=== PATIENT | male | born 1970 | race Caucasian/White ===

== ENCOUNTER → 2018-03-20 | Outpatient (CLI) | payer OTHER ==
[2018-02-23 07:43] VITALS: BMI 38.9
[~2018-03-20] MED LIST: ATE50 PO; ATEN-1 PO; CEP500 PO; CHLO100T25 PO; CHLO200T8 PO; HCTZ25 PO; HYDR-2966 PO; HYDR-4228 PO; IOPAMIDOL 76% 75 ML INFUS BTL 75 ML ONE; KET10 PO; LEVO-85 PO; LIDO700A25 TP; LISI-362 PO; LISI1TAB61 PO; LISI20TA29 PO; LOR05 PO; LOR1 PO; LOTE5DRO8 ASDIRECTED; METF-411 PO; MULT-859 PO; MVM PO; NEBI10TA4 PO; NEBI20TA4 PO; OMEP-153 PO; OMEP40CA48 PO; OXYC-763 PO; OXYC-865 PO; OXYGEN INH; PARO-243 PO; PRO20 PO; QUET100T29 PO; QUET200T29 PO; QUET50TA21 PO; RANI-366 PO; SALSP; SODI45SP NS; TOBOD OS; TRAZ-133 PO; ZOL5 PO; ZOLP-350 PO; [UNRECOGNIZED DRUG - CODE] PO
--- NOTE | 2018-03-20 12:41 | RADIOLOGY IMAGING REPORT ---
FACILITY: [facility] - [place] PATIENT NAME: Bernard Martinez : 1970 MR: [id number] V: [id number] EXAM DATE: ORDERING PHYSICIAN: GREGORY MILLER TECHNOLOGIST: Location: [facility] - [place] Patient: Bernard Martinez : 1970 Visit/Account:[id number] Date of Sevice: 03/20/2018 CHEST W W/O CONTRAST History: Nodule left lower lobe ADDITIONAL CLINICAL HISTORY: None TECHNIQUE: Contiguous axial images were performed through the chest to the level of the adrenal gla nds with and without IV contrast. Coronal and sagittal reformatting was also performed. Dose Loweri ng Technique One of the following dose optimization techniques was utilized in the performance of this exam: Autom ated exposure control; adjustment of the mA and/or kV according to the patient's size; or use of an i terative reconstruction technique. Specific details can be referenced in the facility's radiology C T exam operational policy. Contrast: 75 mL Isovue-370 COMPARISON STUDIES: Single view chest February 22, [address] abdomen pelvis October 09, 2016. And C T of abdomen pelvis April 04, 2009 Lungs / Pleura: There is a 2 mm calcified nodule posterior aspect of the right upper lobe best seen on image 147 There is a 3 mm noncalcified nodule abutting the minor fissure on the right best seen on image 166 o f series 6. There are two separate 2 mm noncalcified nodules also abutting the minor fissure on the right best s een on images 170 171. There is a 4 mm noncalcified nodule abutting the minor fissure on the right best seen on image 180. There is a 2 mm noncalcified nodule abutting the major fissure on the left best seen on image 214 There is coarse linear scarring in the inferior lingula Mediastinum/nodes: No pathologically enlarged mediastinal or hilar lymph nodes are identified Heart and vessels: Small amount of air is seen in the anterior portion of the pulmonary trunk right atrium likely related to contrast injection. Musculoskeletal / Body wall: No aggressive appearing bone lesions are seen Upper abdomen: There is severe hepatic steatosis IMPRESSION: There is a 2 mm calcified nodule posterior aspect right upper lobe as described above There are small noncalcified nodules in both lungs measuring up to 4 mm. These all appear to be abut ting pulmonary fissures. For multiple nodules measuring less than 6 mm, in a low risk patient (minima l or absent smoking history, no history of malignancy), no routine followup is recommended. In a high risk patient (smoking or malignancy history), optional 12 month followup can be obtained. A left lower lobe pulmonary nodule is not appreciated. There is also no evidence of a left lower lob e pulmonary nodule on the prior CTs of the abdomen and pelvis available at this time. If there is an outside study with concern for a left lower lobe pulmonary nodule comparison is recommended Report Dictated By: Brittany Alexis MD at 03/20/2018 12:22 PM Report E-Signed By: Brittany Alexis MD at 03/20/2018 12:37 PM ROSALIO:IRMA
== END ==
LOC: CT 10:01
PROVIDERS: ATTEND Nurse Practitioner Family
DX: R91.8 Other nonspecific abnormal finding of lung field (principal)
CPT/HCPCS: 71270; Q9967

== ENCOUNTER 2018-10-13 14:27 | Outpatient (RCR) | payer OTHER ==
[2018-02-23 07:43] VITALS: BMI 38.9
[~2018-10-13 14:27] MED LIST changes: -IOPAMIDOL 76% 75 ML INFUS BTL 75 ML ONE; -METF-411 PO; +METF-450 PO
[2018-10-14] MEDS ORDERED: IOPAMIDOL 76% 50 ML INFUS BTL 100 ML ONE (09:04)
--- NOTE | 2018-10-14 13:18 | RADIOLOGY IMAGING REPORT ---
FACILITY: [facility] - [place] PATIENT NAME: Bernard Martinez : 1970 MR: [id number] V: [id number] EXAM DATE: ORDERING PHYSICIAN: GREGORY MILLER TECHNOLOGIST: Location: [facility] Patient: Bernard Martinez : 1970 Visit/Account:[id number] Date of Sevice: 10/14/2018 CHEST W W/O CONTRAST History: Pulmonary nodules, smoker ADDITIONAL CLINICAL HISTORY: None TECHNIQUE: Contiguous axial images were performed through the chest to the level of the adrenal gla nds with and without IV contrast. Coronal and sagittal reformatting was also performed.Dose Lowerin g Technique One of the following dose optimization techniques was utilized in the performance of this exam: Autom ated exposure control; adjustment of the mA and/or kV according to the patient's size; or use of an i terative reconstruction technique. Specific details can be referenced in the facility's radiology C T exam operational policy. Contrast: 75 mL Isovue-370 COMPARISON STUDIES: March 20, 2018. Lungs / Pleura: 2 mm calcified nodule posterior aspect right upper lobe appears unchanged and is be st seen on image 168 of series 4. The three noncalcified pulmonary nodules abutting the minor fissure on the right measuring up to 3 mm have remained stable. The 4 mm noncalcified nodule abutting the minor fissure on the right also rem ains unchanged best seen on image 200. The 2 mm noncalcified nodule abutting the major fissure on the left appears unchanged best seen on im age 231 No new nodules identified Linear scarring in the lingula remain stable Mediastinum/nodes: negative. Heart and vessels: Coronary artery calcifications Musculoskeletal / Body wall: No aggressive appearing bone lesions Upper abdomen: Severe hepatic steatosis IMPRESSION: Small calcified and noncalcified pulmonary nodules measuring up to 4 mm have remained stable Severe hepatic steatosis Report Dictated By: Brittany Alexis MD at 10/14/2018 12:57 PM Report E-Signed By: Brittany Alexis MD at 10/14/2018 1:14 PM WSN:[email or web address]
== END 2018-10-14 18:00 | disposition home or self-care (01) ==
LOC: CT 14:27 → EDSTATUS 10-14 14:26 → CT 10-14 18:00
PROVIDERS: ATTEND Nurse Practitioner Family
DX: R91.1 Solitary pulmonary nodule (principal); Z87.891 Personal history of nicotine dependence; K74.60 Unspecified cirrhosis of liver
CPT/HCPCS: 36415; 71270; 82565; Q9967

== ENCOUNTER 2019-01-12 07:37 | Emergency (ER) | payer OTHER ==
[2018-02-23 07:43] VITALS: Wt 135.6 kg
[~2019-01-12 07:37] MED LIST changes: +QUET25TA30 PO
--- NOTE | 2019-01-12 07:39 | ER Report ---
History and Physical Time Seen By MD: 07:41 HPI/ROS CHIEF COMPLAINT: Near syncope HISTORY OF PRESENT ILLNESS: Patient is a 48-year-old male with past medical history significant for hypertension, obstructive sleep apnea who is presenting to the emergency department with complaint of falling asleep frequently. He states the most recent episode was this morning while in the shower he "off" but immediately woke up. He denies any headache. He actually denies passing out and feels he is falling asleep. He states that he's had multiple episodes similar over the weekend. He denies any head injury,. He denies chest pain or shortness of breath. He does admit to a mild cough for the last few days. He denies any abdominal pain he denies nausea vomiting or diarrhea. He does admit to occasional alcohol use, states that he quit smoking a year ago. Denies any other illicit drugs. She does have a history of difficult to control hypertension is on by systolic, hydrochlorothiazide and lisinopril. States that they're continuing to change his medications to better get control of his blood pressure. REVIEW OF SYSTEMS: Constitutional: No fever, no chills. Eyes: No discharge. No double vision ENT: No sore throat. Cardiovascular: No chest pain, no palpitations. Respiratory: Occasional cough, no shortness of breath history of obstructive sleep apnea. Gastrointestinal: No abdominal pain, no vomiting. Genitourinary: No hematuria. Musculoskeletal: No back pain. Skin: No rashes. Neurological: No headache. Allergies: Coded Allergies: avocado (Verified Allergy, Intermediate, BURNING OF THE THROAT, ITCHING EARS, 01/12/19) latex (Verified Allergy, Unknown, UNKNOWN, 01/12/19) PER HOSPITAL PROTOCOL INITIATE LATEX ALLERGY IF ALLERGIC TO AVOCADOS.Also pt says that he does not have a problem with latex. Uncoded Allergies: cats (Allergy, Mild, 07/01/10) Home Meds Reported Medications Quetiapine Fumarate (SEROQUEL) 25 Mg Tablet, 25 MG PO PRN 10/26/18 Quetiapine Fumarate (SEROQUEL) 100 Mg Tablet, 50 MG PO HS 02/23/18 Nebivolol Hcl (BYSTOLIC) 10 Mg Tab, 10 MG PO QDAY, TAB 02/23/18 Lisinopril (LISINOPRIL) 10 Mg Tablet, 30 MG PO QDAY, TAB 02/22/18 Metformin Hcl (METFORMIN HCL) 500 Mg Tablet, 1 TAB PO BID, TAB 08/18/17 Hydrochlorothiazide (HYDROCHLOROTHIAZIDE) 25 Mg Tablet, 1 TAB PO QDAY, TAB 08/18/17 Omeprazole (OMEPRAZOLE) 40 Mg Capsule.dr, 40 MG PO QAM, CAP 10/17/16 Discontinued Scripts Hydroxyzine Hcl (HYDROXYZINE HCL) 50 Mg Tablet, 50 MG PO Q6H PRN for anxiety, #10 Prov:KENISHA LUNA MD 02/23/18 Past Medical/Surgical History Patient has a past medical history of 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 Patient has a surgical history of inguinal and umbilical hernia repair. Patient has a family medical history of cancer, CAD, diabetes, depression. Hx Smoking: Yes (1 in am and 1 in pm for 26 yrs about) Smoking Status: Current: Every Day Smoker Exposure to Second Hand Smoke?: Yes Hx Substance Use Disorder: Yes (quit 2007) Hx Alcohol Use: Yes Constitutional Vital Sign - Last 24 Hours 01/12/19 01/12/19 01/12/19 01/12/19 07:43 07:52 08:22 08:22 Temp 98.2 Pulse 107 88 Resp 20 16 B/P (MAP) 181/117 Pulse Ox 90 93 O2 Delivery Room Air Nasal Cannula O2 Flow Rate 2.0 1.5 01/12/19 01/12/19 08:27 08:27 Pulse 76 Resp 16 Pulse Ox 95 O2 Delivery Nasal Cannula O2 Flow Rate 1.0 Physical Exam General/Constitutional: Patient is awake, alert, nontoxic and in no acute respiratory distress. Head: Normocephalic and atraumatic. Eyes: Conjunctival clear, Pupils are equal and reactive to light. Extraocular muscles are intact and symmetrical. There is mild fatigable horizontal nystagmus noted on exam Sclera are clear and anicteric. Ears:External canals are clear. Tympanic membranes are clear with normal landmarks and light reflex. Nares: No rhinorrhea or bleeding. Turbinates are pink and moist. Oropharyngeal: Mucous membranes are moist. There is no pharyngeal erythema or exudate. There are no palatal petechiae. Uvula is midline and symmetrical. Neck: Supple, no adenopathy. Cardiovascular: Heart is tightly tachycardic with regular rate and rhythm without audible murmurs, rubs or gallops. Pulmonary: Lungs are noted for wheezing to right lung wynn left lung wynn sound clear Abdomen: Deferred, nontender no guarding or peritoneal signs Extremities: No gross deformities, No peripheral cyanosis. Able to move all 4 extremities. Patient with 2+ pitting edema bilateral lower extremities. Neuro: Alert and oriented X3, Cranial nerves 2 thru 12 are intact and symmetrical. Skin: No rashes, skin is warm dry and well perfused. Medical Decision Making Data Points Result Diagram: 01/12/19 0747 01/12/19 0747 Laboratory Hematology Test 01/12/19 07:47 01/12/19 07:57 Red Blood Count 5.18 M/uL (4.00-5.60) Mean Corpuscular Volume 90.3 fL (80.0-96.0) Mean Corpuscular Hemoglobin 28.9 pg (26.0-33.0) Mean Corpuscular Hemoglobin Concent 32.0 g/dL (32.0-36.0) Red Cell Distribution Width 16.5 % (11.5-14.5) Mean Platelet Volume 9.1 fL (7.2-11.1) Neutrophils (%) (Auto) 66.2 % (39.4-72.5) Lymphocytes (%) (Auto) 18.0 % (17.6-49.6) Monocytes (%) (Auto) 11.8 % (4.1-12.4) Eosinophils (%) (Auto) 2.7 % (0.4-6.7) Basophils (%) (Auto) 1.3 % (0.3-1.4) Nucleated RBC Relative Count (auto) 0.0 /100WBC Neutrophils # (Auto) 3.8 K/uL (2.0-7.4) Lymphocytes # (Auto) 1.0 K/uL (1.3-3.6) Monocytes # (Auto) 0.7 K/uL (0.3-1.0) Eosinophils # (Auto) 0.2 K/uL (0.0-0.5) Basophils # (Auto) 0.1 K/uL (0.0-0.1) Nucleated RBC Absolute Count (auto) 0.00 K/uL Prothrombin Time 14.7 seconds (12.0-14.4) Prothromb Time International Ratio 1.14 Activated Partial Thromboplast Time 33 seconds (23-35) Sodium Level 139 mmol/L (137-145) Potassium Level 3.6 mmol/L (3.5-5.0) Chloride Level 102 mmol/L (98-107) Carbon Dioxide Level 29 mmol/L (22-30) Blood Urea Nitrogen 7 mg/dl (9-21) Creatinine 0.60 mg/dl (0.66-1.25) Glomerular Filtration Rate Calc > 60.0 Random Glucose 164 mg/dl (75-110) Calcium Level 8.5 mg/dl (8.4-10.2) Magnesium Level 1.7 mg/dl (1.7-2.2) Total Bilirubin 0.7 mg/dl (0.2-1.3) Aspartate Amino Transf (AST/SGOT) 63 U/L (0-35) Alanine Aminotransferase (ALT/SGPT) 54 U/L (0-56) Alkaline Phosphatase 79 U/L (0-126) Troponin I 0.031 ng/ml B-Type Natriuretic Peptide 236 pg/ml (0-100) Total Protein 7.3 g/dl (6.3-8.2) Albumin 4.0 g/dl (3.5-5.0) Serum Alcohol 59 mg/dl Influenza Virus Type A (PCR) Negative (NEGATIVE) Influenza Virus Type B (PCR) Negative (NEGATIVE) Chemistry Test 01/12/19 07:47 01/12/19 07:57 White Blood Count 5.8 k/uL (4.5-11.0) Red Blood Count 5.18 M/uL (4.00-5.60) Hemoglobin 15.0 g/dL (14.0-18.0) Hematocrit 46.8 % (42.0-52.0) Mean Corpuscular Volume 90.3 fL (80.0-96.0) Mean Corpuscular Hemoglobin 28.9 pg (26.0-33.0) Mean Corpuscular Hemoglobin Concent 32.0 g/dL (32.0-36.0) Red Cell Distribution Width 16.5 % (11.5-14.5) Platelet Count 180 K/uL (150-450) Mean Platelet Volume 9.1 fL (7.2-11.1) Neutrophils (%) (Auto) 66.2 % (39.4-72.5) Lymphocytes (%) (Auto) 18.0 % (17.6-49.6) Monocytes (%) (Auto) 11.8 % (4.1-12.4) Eosinophils (%) (Auto) 2.7 % (0.4-6.7) Basophils (%) (Auto) 1.3 % (0.3-1.4) Nucleated RBC Relative Count (auto) 0.0 /100WBC Neutrophils # (Auto) 3.8 K/uL (2.0-7.4) Lymphocytes # (Auto) 1.0 K/uL (1.3-3.6) Monocytes # (Auto) 0.7 K/uL (0.3-1.0) Eosinophils # (Auto) 0.2 K/uL (0.0-0.5) Basophils # (Auto) 0.1 K/uL (0.0-0.1) Nucleated RBC Absolute Count (auto) 0.00 K/uL Prothrombin Time 14.7 seconds (12.0-14.4) Prothromb Time International Ratio 1.14 Activated Partial Thromboplast Time 33 seconds (23-35) Glomerular Filtration Rate Calc > 60.0 Calcium Level 8.5 mg/dl (8.4-10.2) Magnesium Level 1.7 mg/dl (1.7-2.2) Total Bilirubin 0.7 mg/dl (0.2-1.3) Aspartate Amino Transf (AST/SGOT) 63 U/L (0-35) Alanine Aminotransferase (ALT/SGPT) 54 U/L (0-56) Alkaline Phosphatase 79 U/L (0-126) Troponin I 0.031 ng/ml B-Type Natriuretic Peptide 236 pg/ml (0-100) Total Protein 7.3 g/dl (6.3-8.2) Albumin 4.0 g/dl (3.5-5.0) Serum Alcohol 59 mg/dl Influenza Virus Type A (PCR) Negative (NEGATIVE) Influenza Virus Type B (PCR) Negative (NEGATIVE) Coagulation Test 01/12/19 07:47 Prothrombin Time 14.7 seconds Prothromb Time International Ratio 1.14 Activated Partial Thromboplast Time 33 seconds Toxicology Test 01/12/19 07:47 Serum Alcohol 59 mg/dl EKG/Imaging EKG Interpretation EKG shows sinus rhythm with ventricular rate of [address] segment or T-wave abnormalities. QTC is 439 ms. Monitor Interpretation: Normal Sinus Rhythm Imaging FACILITY: [facility] PATIENT NAME: Bernard Martinez : 1970 MR: [id number] V: [id number] EXAM DATE: [id number] ORDERING PHYSICIAN: JAGDISH COBB TECHNOLOGIST: Location: [facility] - [place] Patient: Bernard Martinez : 1970 Visit/Account:[id number] Date of Sevice: 01/12/2019 EXAMINATION: Head CT without intravenous contrast HISTORY: Overwhelming sense of sleepiness, syncope, TECHNIQUE: Contiguous axial images were obtained from the skull base to the vertex without intravenous contrast. Sagittal and coronal reformatted images are also submitted. Dose Lowering Technique One of the following dose optimization techniques was utilized in the performance of this exam: Automated exposure control; adjustment of the mA and/or kV according to the patient's size; or use of an iterative reconstruction technique. Specific details can be referenced in the facility's radiology CT exam operational policy. COMPARISON: February 22, 2018 FINDINGS: Brain volume: Normal. Ventricles: Normal. Acute ischemic changes: None. Hemorrhage: None. Masses / edema: None. Singh-white: Negative. White matter: There is a small focal area of decreased attenuation in the posterior left parietal white matter that appear stable when compared the prior study Vessels: Negative. Extra-axial: Negative. Calvarium / scalp: Negative. Skull base / visualized face: Negative. Visualized sinuses / orbits: There is complete opacification of the right maxillary sinus with soft tissue density material extending medially into the right-sided the nasal vault appears more advanced when compared to the prior study. Very mild mucosal thickening lateral aspect left maxillary sinus appears less prominent IMPRESSION: Complete opacification right maxillary sinus with soft tissue density material extending medially into the right side of the nasal bone. This appears more advanced when compared to the prior study Report Dictated By: Brittany Alexis MD at 01/12/2019 8:56 AM Report E-Signed By: Brittany Alexis MD at 01/12/2019 9:05 AM WSN:IRMA ED Course/Re-evaluation Clinical Indication for ER IV: IV Access ED Course 01/12/2019 8:01:14 am patient with symptoms of narcolepsy. Plan at this time will be medical workup including cardiac workup, brain atretic peptide, EKG we will also perform CT scan of the head we'll perform urine drug screen and alcohol level. 01/12/2019 9:26:09 am patient with left maxillary sinusitis we'll treat with antibiotics and decongestants. Remaining blood work essentially unremarkable. Slight elevation in brain natruretic peptide. Troponin was negative. Alcohol level was 56 mg/dL and patient did admit to drinking last night. I counseled patient on avoiding alcohol for the near future as this is a sedative and certainly is not helping with his narcoleptic episodes. 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 Decision to Disposition Date: Jan 12, 2019 Decision to Disposition Time: 09:27 Depart Departure Latest Vital Signs Vital Signs Date Time Temp Pulse Resp B/P (MAP) Pulse Ox O2 Delivery O2 Flow Rate FiO2 01/12/19 08:27 76 16 01/12/19 08:27 95 Nasal Cannula 1.0 01/12/19 07:43 98.2 181/117 Impression: Primary Impression: Narcolepsy Additional Impression: Sinusitis Condition: Improved Disposition: HOME OR SELF-CARE Referrals: GREGORY MILLER (PCP) make a follow up appointmenyt in the next 2 weeks to follow up regarding your narcoleptic episodes New Scripts Pseudoephedrine Hcl (SUDAFED 12 HOUR) 120 Mg Tablet.er 120 MG PO Q12H, #14 TAB 0 Refills Prov: JAGDISH COBB MD 01/12/19 Amoxicillin/Pot Clav 875-125 Mg Tab (AUGMENTIN 875-125 TABLET) 1 Each Tablet 1 TAB PO Q12H, #20 TAB 0 Refills Prov: JAGDISH COBB MD 01/12/19 Departure Forms: ER Transition Record, Medications Reconciliation, Off Work/School Form, School or Work Release?: Work Number of days to be released: 3 Patient Portal Information Patient Instructions: Narcolepsy (GEN), Sinusitis (ED) Additional Instructions: No driving for the next 72 hours. Make a follow-up appointment with your primary Provider the next 2 weeks Problem Qualifiers Primary Impression: Narcolepsy Narcolepsy type: primary with cataplexy Qualified Codes: G47.411 - Narcolepsy with cataplexy Additional Impression: Sinusitis Sinusitis location: maxillary Chronicity: acute Recurrence: not specified as recurrent Qualified Codes: J01.00 - Acute maxillary sinusitis, unspecified JAGDISH COBB MD Jan 12, 2019 07:39
--- NOTE | 2019-01-12 08:04 | EKG ---
FACILITY: [facility] PATIENT NAME: LORA RODRIGEZ : [id number] MR: [id number] V: [id number] EXAM DATE: ORDERING PHYSICIAN: JAGDISH COBB TECHNOLOGIST: KATIE Kidd Reason : SYNCOPE Blood Pressure : / mmHG Vent. Rate : 096 BPM Atrial Rate : 096 BPM P-R Int : 192 ms QRS Dur : 084 ms QT Int : 348 ms P-R-T Axes : 051 092 019 degrees QTc Int : 439 ms Normal sinus rhythm T wave abnormality consistent with inf/sep ischemia vs normal variant When compared with ECG of 22-FEB-2018 23:18, T wave inversion now evident in Anterior leads Confirmed by KENISHA LUNA ([id number]) on 01/12/2019 10:02:45 PM Referred By: REZA Confirmed By:KENISHA LUNA
[2019-01-12 08:17] LABS: PLATELET COUNT, AUTOMATED 180 K/uL (150-450)
[2019-01-12] MEDS ORDERED: ALBUTEROL/IPRATROPIUM 3 ML NEB NEB ONE (08:20)
[2019-01-12] MEDS ORDERED: LABETALOL HCL 20 MG/4 ML SYR IVP ONE (08:20)
[2019-01-12] MEDS ORDERED: LABETALOL HCL 100 MG/20ML VIAL IVP ONE (08:25)
[2019-01-12 08:28] LABS: INR 1.14
--- NOTE | 2019-01-12 09:08 | RADIOLOGY IMAGING REPORT ---
FACILITY: [facility] - [place] PATIENT NAME: Bernard Martinez : 1970 MR: [id number] V: [id number] EXAM DATE: ORDERING PHYSICIAN: JAGDISH COBB TECHNOLOGIST: Location: [facility] - [place] Patient: Bernard Martinez : 1970 Visit/Account:[id number] Date of Sevice: 01/12/2019 EXAMINATION: Head CT without intravenous contrast HISTORY: Overwhelming sense of sleepiness, syncope, TECHNIQUE: Contiguous axial images were obtained from the skull base to the vertex without intraven ous contrast. Sagittal and coronal reformatted images are also submitted. Dose Lowering Technique One of the following dose optimization techniques was utilized in the performance of this exam: Autom ated exposure control; adjustment of the mA and/or kV according to the patient's size; or use of an i terative reconstruction technique. Specific details can be referenced in the facility's radiology C T exam operational policy. COMPARISON: February 22, 2018 FINDINGS: Brain volume: Normal. Ventricles: Normal. Acute ischemic changes: None. Hemorrhage: None. Masses / edema: None. Singh-white: Negative. White matter: There is a small focal area of decreased attenuation in the posterior left parietal wh ite matter that appear stable when compared the prior study Vessels: Negative. Extra-axial: Negative. Calvarium / scalp: Negative. Skull base / visualized face: Negative. Visualized sinuses / orbits: There is complete opacification of the right maxillary sinus with soft tissue density material extending medially into the right-sided the nasal vault appears more advanced when compared to the prior study. Very mild mucosal thickening lateral aspect left maxillary sinus appears less prominent IMPRESSION: Complete opacification right maxillary sinus with soft tissue density material extending medially int o the right side of the nasal bone. This appears more advanced when compared to the prior study Report Dictated By: Brittany Alexis MD at 01/12/2019 8:56 AM Report E-Signed By: Brittany Alexis MD at 01/12/2019 9:05 AM WSN:[email or web address]
--- NOTE | 2019-01-12 09:12 | RADIOLOGY IMAGING REPORT ---
FACILITY: [facility] PATIENT NAME: Bernard Martinez : 1970 MR: [id number] V: [id number] EXAM DATE: ORDERING PHYSICIAN: JAGDISH COBB TECHNOLOGIST: Location: [facility] [place] Patient: Bernard Martinez : 1970 Visit/Account:[id number] Date of Sevice: 01/12/2019 Exam type: CHEST PA LAT History: Chest Pain Comparison: February 22, 2014. Findings: The lungs are free of acute effusions, infiltrates or edema. The cardiac silhouette is normal in siz e. The trachea is in midline.. The visualized bones are unremarkable for age IMPRESSION: 1. No acute cardiopulmonary process is seen Report Dictated By: Brittany Alexis MD at 01/12/2019 9:05 AM Report E-Signed By: Brittany Alexis MD at 01/12/2019 9:07 AM WSN:[email or web address]
[2019-01-12] MEDS ORDERED: AMOX-559 PO (09:29)
[2019-01-12] MEDS ORDERED: PSEU120T69 PO (09:29)
[2019-01-12 09:30] VITALS: BP 171/118
== END 2019-01-12 10:00 | disposition home or self-care (01) ==
LOC: ER 07:46
DX: G47.411 Narcolepsy with cataplexy (principal); J01.00 Acute maxillary sinusitis, unspecified; Z87.891 Personal history of nicotine dependence
CPT/HCPCS: 70450; 71046; 80305; 80320; 81001; 83735; 83880; 84443; 84484; 85025; 85610; 85730; 87502; 93005; 94640; 96374; 99284; J7620; 82040; 82247; 82310; 82374; 82435; 82565; 82947; 84075; 84132; 84155; 84295; 84450; 84460; 84520

== ENCOUNTER → 2019-02-02 | Outpatient (CLI) | payer OTHER ==
[2018-02-23 07:43] VITALS: BMI 38.9
[~2019-02-02] MED LIST changes: +AMOX-559 PO; +PSEU120T69 PO
== END ==
LOC: LAB 13:54
PROVIDERS: ATTEND Nurse Practitioner Family
DX: R74.8 Abnormal levels of other serum enzymes (principal); E78.5 Hyperlipidemia, unspecified; G47.33 Obstructive sleep apnea (adult) (pediatric); I10 Essential (primary) hypertension; R73.03 Prediabetes
CPT/HCPCS: 36415; 82465; 83036; 83718; 83880; 84478

== ENCOUNTER → 2019-02-19 | Outpatient (CLI) | payer OTHER ==
[2018-02-23 07:43] VITALS: BMI 38.9
== END ==
LOC: LAB 14:49
PROVIDERS: ATTEND Nurse Practitioner Family
DX: Z51.81 Encounter for therapeutic drug level monitoring (principal); I10 Essential (primary) hypertension
CPT/HCPCS: 36415; 82040; 82247; 82310; 82374; 82435; 82565; 82947; 84075; 84132; 84155; 84295; 84450; 84460; 84520

== ENCOUNTER 2019-04-04 12:44 | Emergency (ER) | payer SELFPAY ==
[2018-02-23 07:43] VITALS: Wt 127.0 kg
[~2019-04-04 12:44] MED LIST changes: -RANI-366 PO; +RANI-54 PO
--- NOTE | 2019-04-04 13:09 | ER Report ---
History and Physical Time Seen By MD: 13:09 Hx. of Stated Complaint: Panic attacks HPI/ROS CHIEF COMPLAINT: Panic attacks HISTORY OF PRESENT ILLNESS: 48 year old male presents to ED with reports of panic attacks since Friday or Friday afternoon. These occur about 4-5 times a day with symptoms of headache, shortness of breath, tremor, and tingling in his hands and feet. Denies chest pain, heaviness over his chest, dizziness, changes in vision, nausea. As well, reports difficulty in saying the words that he wants to say. Reports his recently unexpectedly and he is having to plan her . Her family is in town and staying with him. Denies SI. Jordon also reports he stopped drinking the same time that his symptoms started. He used to drink 12 shots and 3 beers a day. Also reports inability to sleep at night due to racing thoughts. States he has been able to talk through the of his with her family. Would like to talk with S about staying up there for a day or two. REVIEW OF SYSTEMS: Constitutional: Denies fevers HEENT: Reports headaches with the panic attacks Respiratory: No cough. Reports SOB with the panic attacks. Cardiovascular: No chest pain, no palpitations. Gastrointestinal: No vomiting, no abdominal pain. Neuro: Reprots tremors and tingling in his hands and feet with the panic attacks. Reports some expressive aphasia. Musculoskeletal: No back pain. Psych: No SI. Anxiety and depression over losing his . Allergies: Coded Allergies: avocado (Verified Allergy, Intermediate, BURNING OF THE THROAT, ITCHING EARS, 04/04/19) latex (Verified Allergy, Unknown, UNKNOWN, 04/04/19) PER HOSPITAL PROTOCOL INITIATE LATEX ALLERGY IF ALLERGIC TO AVOCADOS.Also pt says that he does not have a problem with latex. Uncoded Allergies: cats (Allergy, Mild, 07/01/10) Home Meds Reported Medications Furosemide (FUROSEMIDE) 40 Mg Tablet, 40 MG PO DAILY 04/04/19 [Potassium] 20 MEQ No Conflict Check, PO DAILY 04/04/19 Quetiapine Fumarate (SEROQUEL) 25 Mg Tablet, 25 MG PO PRN 10/26/18 Quetiapine Fumarate (SEROQUEL) 100 Mg Tablet, 100 MG PO HS 02/23/18 Nebivolol Hcl (BYSTOLIC) 10 Mg Tab, 10 MG PO QDAY, TAB 02/23/18 Lisinopril (LISINOPRIL) 10 Mg Tablet, 30 MG PO QDAY, TAB 02/22/18 Metformin Hcl (METFORMIN HCL) 500 Mg Tablet, 1 TAB PO BID, TAB 08/18/17 Omeprazole (OMEPRAZOLE) 40 Mg Capsule.dr, 40 MG PO QAM, CAP 10/17/16 Discontinued Reported Medications Hydrochlorothiazide (HYDROCHLOROTHIAZIDE) 25 Mg Tablet, 1 TAB PO QDAY, TAB 08/18/17 Discontinued Scripts Pseudoephedrine Hcl (SUDAFED 12 HOUR) 120 Mg Tablet.er, 120 MG PO Q12H, #14 TAB 0 Refills Prov:JAGDISH COBB MD 01/12/19 Amoxicillin/Pot Clav 875-125 Mg Tab (AUGMENTIN 875-125 TABLET) 1 Each Tablet, 1 TAB PO Q12H, #20 TAB 0 Refills Prov:JAGDISH COBB MD 01/12/19 Past Medical/Surgical History Past medical hx significant for seizures r/t ETOH withdrawal in 2009, angina, REJI, HTN, asthma, elevated liver enzymes, GERDpre-diabetes, substance abuse in 2007, anxiety. Surgical hx significant for inguinal and umbilical hernia repair 10/22/16 Reviewed Nurses Notes: Yes Hx Smoking: Yes (1 in am and 1 in pm for 26 yrs about) Smoking Status: Current: Every Day Smoker Exposure to Second Hand Smoke?: Yes Hx Substance Use Disorder: Yes (quit 2007) Hx Alcohol Use: Yes Constitutional Vital Sign - Last 24 Hours 04/04/19 04/04/19 04/04/19 04/04/19 12:56 12:59 13:00 13:04 Temp 99.3 Pulse 110 Resp 20 B/P (MAP) 174/125 (141) 180/123 180/123 (142) Pulse Ox 92 90 O2 Delivery Room Air 04/04/19 04/04/19 04/04/19 04/04/19 13:09 13:14 13:19 13:24 Pulse 109 110 108 97 Pulse Ox 90 90 90 89 04/04/19 04/04/19 04/04/19 04/04/19 13:29 13:30 13:34 13:39 Pulse 105 107 B/P (MAP) 168/117 (134) Pulse Ox 92 93 93 6/204/04/19 04/04/19 04/04/19 13:44 13:49 13:54 13:59 Pulse 94 90 105 94 Pulse Ox 92 93 96 93 04/04/19 04/04/19 04/04/19 04/04/19 14:00 14:04 14:09 14:14 Pulse 94 96 95 B/P (MAP) 181/112 (135) Pulse Ox 94 94 94 04/04/19 04/04/19 04/04/19 04/04/19 14:24 14:29 14:30 14:34 Pulse 79 96 88 B/P (MAP) 157/100 (119) Pulse Ox 93 95 95 04/04/19 04/04/19 04/04/19 04/04/19 14:39 14:44 15:00 15:14 Pulse 86 89 89 B/P (MAP) 161/112 (128) Pulse Ox 95 97 94 Physical Exam General Appearance: The patient is alert, has no immediate need for airway p rotection and no current signs of toxicity. Eyes: Pupils equal and round no injection. Respiratory: Chest is non tender, lungs are clear to auscultation. Cardiac: regular rate and rhythm Gastrointestinal: Abdomen is soft and non tender, no masses, bowel sounds normal. Musculoskeletal: Neck: Neck is supple and non tender. Extremities have full range of motion and are non tender. Skin: No rashes or lesions. DIFFERENTIAL DIAGNOSIS: After history and physical exam differential diagnosis was considered for anxiety, depression, stroke, substance abuse, alcohol withdrawal, panic attack, insomnia. Medical Decision Making Data Points Result Diagram: 04/04/19 1323 04/04/19 1323 Laboratory Hematology Test 04/04/19 13:07 04/04/19 13:23 Urine Color Mel Urine Clarity Clear Urine pH 5.0 pH (4.8-9.5) Urine Specific [place] 1.023 Urine Protein 30 mg/dL (NEGATIVE) Urine Glucose (UA) Negative mg/dL (NEGATIVE) Urine Ketones Negative mg/dL (NEGATIVE) Urine Blood Negative (NEGATIVE) Urine Nitrite Negative (NEGATIVE) Urine Bilirubin Negative (NEGATIVE) Urine Urobilinogen 4.0 mg/dL (0.2-1.9) Urine Leukocyte Esterase Negative (NEGATIVE) Urine RBC 2 /HPF (0-2/HPF) Urine WBC 2 /HPF (0-5/HPF) Urine Squamous Epithelial Cells None /LPF (</=FEW) Urine Bacteria Negative /HPF (NONE-FEW) Urine Mucus Few /HPF (NONE-FEW) Urine Opiates Screen Negative Urine Barbiturates Screen Negative Ur Tricyclic Antidepressants Screen Negative Urine Phencyclidine Screen Negative Urine Amphetamines Screen Negative Urine Benzodiazepines Screen Negative Urine Cocaine Screen Negative Urine Cannabinoids Screen Negative Red Blood Count 5.75 M/uL (4.00-5.60) Mean Corpuscular Volume 92.9 fL (80.0-96.0) Mean Corpuscular Hemoglobin 30.9 pg (26.0-33.0) Mean Corpuscular Hemoglobin Concent 33.3 g/dL (32.0-36.0) Red Cell Distribution Width 19.0 % (11.5-14.5) Mean Platelet Volume 9.0 fL (7.2-11.1) Neutrophils (%) (Auto) 78.7 % (39.4-72.5) Lymphocytes (%) (Auto) 9.5 % (17.6-49.6) Monocytes (%) (Auto) 9.1 % (4.1-12.4) Eosinophils (%) (Auto) 1.6 % (0.4-6.7) Basophils (%) (Auto) 1.1 % (0.3-1.4) Nucleated RBC Relative Count (auto) 0.1 /100WBC Neutrophils # (Auto) 6.8 K/uL (2.0-7.4) Lymphocytes # (Auto) 0.8 K/uL (1.3-3.6) Monocytes # (Auto) 0.8 K/uL (0.3-1.0) Eosinophils # (Auto) 0.1 K/uL (0.0-0.5) Basophils # (Auto) 0.1 K/uL (0.0-0.1) Nucleated RBC Absolute Count (auto) 0.01 K/uL Sodium Level 141 mmol/L (137-145) Potassium Level 4.1 mmol/L (3.5-5.0) Chloride Level 103 mmol/L (98-107) Carbon Dioxide Level 22 mmol/L (22-30) Blood Urea Nitrogen 12 mg/dl (9-21) Creatinine 0.70 mg/dl (0.66-1.25) Glomerular Filtration Rate Calc > 60.0 Random Glucose 117 mg/dl (75-110) Calcium Level 9.7 mg/dl (8.4-10.2) Magnesium Level 2.1 mg/dl (1.7-2.2) Total Bilirubin 1.1 mg/dl (0.2-1.3) Aspartate Amino Transf (AST/SGOT) 269 U/L (0-35) Alanine Aminotransferase (ALT/SGPT) 155 U/L (0-56) Alkaline Phosphatase 81 U/L (0-126) Total Protein 8.3 g/dl (6.3-8.2) Albumin 4.6 g/dl (3.5-5.0) Salicylates Level < 10 mg/L Salicylate Last Dose Date unk Acetaminophen Level < 10 ug/ml Serum Alcohol < 10 mg/dl Chemistry Test 04/04/19 13:07 04/04/19 13:23 Urine Color Mel Urine Clarity Clear Urine pH 5.0 pH (4.8-9.5) Urine Specific [place] 1.023 Urine Protein 30 mg/dL (NEGATIVE) Urine Glucose (UA) Negative mg/dL (NEGATIVE) Urine Ketones Negative mg/dL (NEGATIVE) Urine Blood Negative (NEGATIVE) Urine Nitrite Negative (NEGATIVE) Urine Bilirubin Negative (NEGATIVE) Urine Urobilinogen 4.0 mg/dL (0.2-1.9) Urine Leukocyte Esterase Negative (NEGATIVE) Urine RBC 2 /HPF (0-2/HPF) Urine WBC 2 /HPF (0-5/HPF) Urine Squamous Epithelial Cells None /LPF (</=FEW) Urine Bacteria Negative /HPF (NONE-FEW) Urine Mucus Few /HPF (NONE-FEW) Urine Opiates Screen Negative Urine Barbiturates Screen Negative Ur Tricyclic Antidepressants Screen Negative Urine Phencyclidine Screen Negative Urine Amphetamines Screen Negative Urine Benzodiazepines Screen Negative Urine Cocaine Screen Negative Urine Cannabinoids Screen Negative White Blood Count 8.6 k/uL (4.5-11.0) Red Blood Count 5.75 M/uL (4.00-5.60) Hemoglobin 17.8 g/dL (14.0-18.0) Hematocrit 53.4 % (42.0-52.0) Mean Corpuscular Volume 92.9 fL (80.0-96.0) Mean Corpuscular Hemoglobin 30.9 pg (26.0-33.0) Mean Corpuscular Hemoglobin Concent 33.3 g/dL (32.0-36.0) Red Cell Distribution Width 19.0 % (11.5-14.5) Platelet Count 164 K/uL (150-450) Mean Platelet Volume 9.0 fL (7.2-11.1) Neutrophils (%) (Auto) 78.7 % (39.4-72.5) Lymphocytes (%) (Auto) 9.5 % (17.6-49.6) Monocytes (%) (Auto) 9.1 % (4.1-12.4) Eosinophils (%) (Auto) 1.6 % (0.4-6.7) Basophils (%) (Auto) 1.1 % (0.3-1.4) Nucleated RBC Relative Count (auto) 0.1 /100WBC Neutrophils # (Auto) 6.8 K/uL (2.0-7.4) Lymphocytes # (Auto) 0.8 K/uL (1.3-3.6) Monocytes # (Auto) 0.8 K/uL (0.3-1.0) Eosinophils # (Auto) 0.1 K/uL (0.0-0.5) Basophils # (Auto) 0.1 K/uL (0.0-0.1) Nucleated RBC Absolute Count (auto) 0.01 K/uL Glomerular Filtration Rate Calc > 60.0 Calcium Level 9.7 mg/dl (8.4-10.2) Magnesium Level 2.1 mg/dl (1.7-2.2) Total Bilirubin 1.1 mg/dl (0.2-1.3) Aspartate Amino Transf (AST/SGOT) 269 U/L (0-35) Alanine Aminotransferase (ALT/SGPT) 155 U/L (0-56) Alkaline Phosphatase 81 U/L (0-126) Total Protein 8.3 g/dl (6.3-8.2) Albumin 4.6 g/dl (3.5-5.0) Salicylates Level < 10 mg/L Salicylate Last Dose Date unk Acetaminophen Level < 10 ug/ml Serum Alcohol < 10 mg/dl Toxicology Test 04/04/19 13:07 04/04/19 13:23 Urine Opiates Screen Negative Urine Barbiturates Screen Negative Ur Tricyclic Antidepressants Screen Negative Urine Phencyclidine Screen Negative Urine Amphetamines Screen Negative Urine Benzodiazepines Screen Negative Urine Cocaine Screen Negative Urine Cannabinoids Screen Negative Salicylates Level < 10 mg/L Salicylate Last Dose Date unk Acetaminophen Level < 10 ug/ml Serum Alcohol < 10 mg/dl Urinalysis Test 04/04/19 13:07 Urine Color Mel Urine Clarity Clear Urine pH 5.0 pH (4.8-9.5) Urine Specific [place] 1.023 Urine Protein 30 mg/dL (NEGATIVE) Urine Glucose (UA) Negative mg/dL (NEGATIVE) Urine Ketones Negative mg/dL (NEGATIVE) Urine Blood Negative (NEGATIVE) Urine Nitrite Negative (NEGATIVE) Urine Bilirubin Negative (NEGATIVE) Urine Urobilinogen 4.0 mg/dL (0.2-1.9) Urine Leukocyte Esterase Negative (NEGATIVE) Urine RBC 2 /HPF (0-2/HPF) Urine WBC 2 /HPF (0-5/HPF) Urine Squamous Epithelial Cells None /LPF (</=FEW) Urine Bacteria Negative /HPF (NONE-FEW) Urine Mucus Few /HPF (NONE-FEW) ED Course/Re-evaluation ED Course Upon arrival to the ED, patient admitted to an exam room, hx and physical obtained, differentials considered. Presents to ED with reports of panic attacks since Friday or Friday afternoon. These occur about 4-5 times a day with symptoms of headache, shortness of breath, tremor, and tingling in his hands and feet. Denies chest pain, heaviness over his chest, dizziness, changes in vision, nausea. As well, reports some expressive aphasia. Reports his recently unexpectedly and he is having to plan her . Her family is in town and staying with him. Denies SI. Ray also reports he stopped drinking the same time that his symptoms started. He used to drink 12 shots and 3 beers a day. Also reports inability to sleep at night due to racing thoughts. He has a hx of alcohol detox in 2009. Has hx of anxiety that he takes medication for. Hx of ETOH and substance abuse. Smokes 1/2 ppd. He consulted with S and is agreeable to being admitted. BP was elevated on admission at 160s/110. Patient reports he has not been taking his BP meds for several days. Heart rate and rhythm regular. Lungs clear to auscultation. CBC, UA, urine drug screen, thyroid, drug panel, magnesium drawn. IV started, 1000 ML NS infused. AST 269, A LT 155, UA clear, toxicology screen negative, Alcohol level <10, RBC 5.75, WBC 8.6, Neutrophils 78.7, Mag 2.1. Since patient is agreeable to being admitted to [facility], psychiatrist, Suki Dominguez, consulted with and agrees to admit to [facility]. Patient agrees with plan of care. Decision to Disposition Date: Apr 04, 2019 Decision to Disposition Time: 14:30 Depart Departure Latest Vital Signs Vital Signs Date Time Temp Pulse Resp B/P (MAP) Pulse Ox O2 Delivery O2 Flow Rate FiO2 04/04/19 15:14 89 94 04/04/19 15:00 161/112 (128) 04/04/19 13:00 99.3 20 Room Air Impression: Primary Impression: Depression Additional Impression: INSOMNIA, UNSPECIFIED Condition: Condition Unchanged Disposition: XFER TO [facility] Referrals: GREGORY MILLER (PCP) MICROPHONE OPERATOR/PA consult with MD: Verbally Problem Qualifiers Primary Impression: Depression Depression Type: unspecified Qualified Codes: F32.9 - Major depressive disorder, single episode, unspecified GITA JUNIOR Apr 04, 2019 13:09
[2019-04-04 13:50] LABS: PLATELET COUNT, AUTOMATED 164 K/uL (150-450)
[2019-04-04] MEDS ORDERED: NS(*) 0.9% 1000 ML BAG 1,000 ML IV ONE (14:10)
[2019-04-04 15:00] VITALS: BP 161/112
[2019-04-04] MEDS ORDERED: FURO-47 PO (15:07)
[2019-04-04] MEDS ORDERED: POTASSIUM PO (15:07)
[2019-04-05] MEDS ORDERED: POTA-28 PO (19:02)
== END 2019-04-04 15:40 | disposition other institution (70) ==
LOC: ER 13:20
DX: F32.9 Major depressive disorder, single episode, unspecified (principal); F43.0 Acute stress reaction; G47.00 Insomnia, unspecified; Z79.84 Long term (current) use of oral hypoglycemic drugs; Z79.899 Other long term (current) drug therapy; F17.200 Nicotine dependence, unspecified, uncomplicated
CPT/HCPCS: 80305; 80320; 80329; 81001; 83735; 84443; 85025; 96360; 96361; 99284; J7030; 82040; 82247; 82310; 82374; 82435; 82565; 82947; 84075; 84132; 84155; 84295; 84450; 84460; 84520

== ENCOUNTER 2019-04-04 14:55 | Inpatient (IN) | payer SELFPAY ==
[2018-02-23 07:43] VITALS: Ht 180.3 cm; Wt 129.3 kg
[~2019-04-04] VITALS: Ht 180.3 cm; Wt 129.3 kg
[2019-04-04] MEDS ORDERED: POTASSIUM PO (15:07)
[2019-04-04] MEDS ORDERED: FURO-47 PO (15:07)
[2019-04-04 15:35] VITALS: BP 178/121
[2019-04-04] MEDS ORDERED: DIAZEPAM 10 MG TAB PO PRN (15:55)
[2019-04-04] MEDS: DIAZEPAM 10 MG TAB PO PRN ×5 (16:15→23:40)
[2019-04-04] MEDS ORDERED: NICOTINE CARTRIDGE 1 EA PO PRN (16:40)
[2019-04-04] MEDS ORDERED: NICOTINE INH SYSTEM 10 MG/INH INH PRN (16:40)
[2019-04-04] MEDS ORDERED: MAG HYD/AL HYD/SIMETH 30ML UDC PO PRN (16:40)
[2019-04-04] MEDS ORDERED: QUEtiapine FUM 25 MG TAB PO PRN (16:45)
[2019-04-04] MEDS: metFORMIN HCL 500 MG TAB PO SCH (17:19)
[2019-04-04] MEDS ORDERED: LOPERAMIDE HCL 2 MG CAP PO PRN (17:45)
[2019-04-04] MEDS ORDERED: LOPERAMIDE HCL 2 MG CAP PO ONE (17:45)
[2019-04-04 19:56] VITALS: BP 144/95
[2019-04-04] MEDS ORDERED: QUEtiapine FUM 100 MG TAB PO SCH (21:00)
[2019-04-04 21:33] VITALS: BP 148/95
[2019-04-04 22:23] VITALS: BP 148/95
[2019-04-05] MEDS: DIAZEPAM 10 MG TAB PO PRN (01:15)
[2019-04-05 06:03] VITALS: BP 169/105
[2019-04-05 06:20] LABS: PLATELET COUNT, AUTOMATED 133 K/uL (150-450)
[2019-04-05] MEDS: NEBIVOLOL HCL 5 MG TAB PO SCH (08:20)
[2019-04-05] MEDS: POTASSIUM CHL 20 MEQ TABCR PO SCH (08:20)
[2019-04-05] MEDS: metFORMIN HCL 500 MG TAB PO SCH ×2 (08:20→17:02)
[2019-04-05] MEDS: FOLIC ACID 1 MG TAB PO SCH (08:20)
[2019-04-05] MEDS: FUROSEMIDE 40 MG TAB PO SCH (08:20)
[2019-04-05] MEDS: MULTIVITAMINS TAB PO SCH (08:21)
[2019-04-05] MEDS: LISINOPRIL PO SCH (08:21)
[2019-04-05] MEDS: THIAMINE HCL 100 MG TAB PO SCH (08:21)
[2019-04-05] MEDS: PANTOPRAZOLE SOD 40 MG TABEC PO SCH (08:21)
[2019-04-05 09:55] VITALS: BP 158/98
--- NOTE | 2019-04-05 12:08 | HISTORY AND PHYSICAL ---
DATE OF ADMISSION: April 04, 2019 DATE OF INTERVIEW: April 05, 2019 at 9 a.m. ATTENDING PHYSICIAN Lupis Barroso MD CHIEF COMPLAINT "I was trying to detox on my own. I was making arrangements. 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 The patient has a history of drinking and has most recently been drinking three beers per day along with about 12 ounces of hard liquor. A week ago, he came home and found his in their bed. He called EMS and she was brought to the ER but attempts at resuscitation were not successful. Since then he has had a great deal of support from family members and has been planning her . He decided to stop drinking completely cold turkey five days prior to admission. He says that he was starting to feel very ill, very anxious and was having panic attacks. He also says his voices came back, telling him "It's all your fault." He came to the emergency room yesterday and was admitted with alcohol withdrawal. He denies any current suicidal ideation, although he does say yesterday he had some fleeting thoughts of suicide but had no plan and no intention. He has been distraught and upset, of course, since his but has been functioning pretty well with the help of family in terms of making plans for her . He has been eating. He says his sleep has been difficult and he thinks he has only been getting three or four hours of sleep per night lately. He has been wearing his CPAP and he reports that generally when he does not wear his CPAP consistently he does experience the onset of auditory hallucinations. PAST PSYCHIATRIC HISTORY He has had three prior residential admissions for rehab including one at the age of 23 in [place] and another one about 11 years ago at [facility] in [place]. He has several admissions here to [facility] for detox and also for psychotic symptoms. He attends [facility] and was last there with his therapist, Bartolome, approximately six months ago. He formerly attended AA in the past fairly regularly but had fallen off; he attended his first AA meeting in a long time on Friday, when he decided to quit alcohol cold turkey. FAMILY HISTORY His mother had depression, alcoholism in two brothers and in several uncles. There are no completed suicides in the family. PAST MEDICAL/SURGICAL HISTORY * Obstructive sleep apnea. * Hypertension. * Seasonal allergies. * History of DTs with alcohol withdrawal in the past. * He was recently diagnosed with an elevated BNP and he was started on Lasix about two months ago. * He is prediabetic and takes Metformin. * He had hernia surgery one year ago. CURRENT MEDICATIONS * Quetiapine 100 mg at bedtime. * Lasix 40 mg daily. * Potassium chloride 20 mEq daily. * Bystolic 10 mg daily. * Lisinopril 30 mg daily. * Protonix 40 mg daily. * Metformin 500 mg b.i.d. ALLERGIES Avocado, cats and latex. SOCIAL HISTORY Born and raised in [place]. His parents were at the time of his . He got along well with family members and he describes a good childhood which was free of emotional, physical or sexual abuse. He has a very supportive family. He lives in [place] and was to his for about three years. As above, she unexpectedly a week ago and he is awaiting the results of her autopsy to find out her case of . He has three brothers and two sisters. He is a high school graduate. He has been three times in total. He has two children and a stepson, who are supportive. SUBSTANCE ABUSE HISTORY In the distant past, he says he "tried almost everything". He never had any history of intravenous drug abuse. He has used no other substances other than alcohol since 2007. He is an alcoholic who has most recently been drinking 12 ounces of hard liquor plus three beers per day. ABUSE HISTORY Negative. LEGAL HISTORY He did have one DUI in the past. PHYSICAL EXAMINATION Please see the ER physician's report. VITAL SIGNS: Temperature 98.7, pulse 87, blood pressure 144/95, pulse oximetry 91 on room air. LABORATORY STUDIES Platelet count is low at 133. The remainder of the CBC is WNL. Creatinine is low at 0.6. AST high at 166. ALT high at 134. The remainder of the chemistry panel is WNL. Urinalysis is WNL. Tox screen is negative. Serum alcohol is nil. MENTAL STATUS EXAM The patient is well-groomed with long hair in a ponytail, wearing glasses and dressed in hospital scrubs. He is cooperative. He makes moderate to poor eye contact with generally a downcast gaze. He was not tearful. Speech was normal in rate, tone and volume. Mood and affect were depressed. Thought process is logical and goal-direct. Thought content is positive for auditory hallucinations of a derogatory nature, saying over and over "it's your fault." He denies suicidal ideation, homicidal ideation, visual hallucinations and delusions. He is alert and fully oriented to person, place, time and situation. Memory is intact for immediate, recent and remote recall. Intelligence is average based on interview. Insight and judgment are good. 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 * Alcohol use disorder, severe. * Alcohol withdrawal. * Bereavement. PLAN The patient is admitted to [facility]. He is being maintained on suicide precautions. We have increased his Seroquel to 150 mg q h.s. to treat his psychotic symptoms. He is being monitored on the AL protocol and receiving Valium for detox. He is using his CPAP at night. He will participate in individual and group therapies with a focus on sobriety strategies as well as a focus on his recent bereavement. His estimated length of stay will be three to five days. [facility]
[2019-04-05 14:25] VITALS: BP 142/98
[2019-04-05] MEDS ORDERED: POTA-28 PO (19:02)
[2019-04-05 20:02] VITALS: BP 145/90
[2019-04-05] MEDS ORDERED: QUEtiapine FUM 100 MG TAB PO SCH (21:00)
[2019-04-06 04:29] VITALS: BP 117/72
[2019-04-06 07:55] VITALS: BP 138/94
[2019-04-06] MEDS: NEBIVOLOL HCL 5 MG TAB PO SCH (08:24)
[2019-04-06] MEDS: metFORMIN HCL 500 MG TAB PO SCH (08:24)
[2019-04-06] MEDS: PANTOPRAZOLE SOD 40 MG TABEC PO SCH (08:25)
[2019-04-06] MEDS: THIAMINE HCL 100 MG TAB PO SCH (08:25)
[2019-04-06] MEDS: LISINOPRIL PO SCH (08:25)
[2019-04-06] MEDS: FUROSEMIDE 40 MG TAB PO SCH (08:25)
[2019-04-06] MEDS: FOLIC ACID 1 MG TAB PO SCH (08:25)
[2019-04-06] MEDS: MULTIVITAMINS TAB PO SCH (08:25)
[2019-04-06] MEDS: POTASSIUM CHL 20 MEQ TABCR PO SCH (08:25)
[2019-04-06] MEDS ORDERED: NIC10R INH (10:14)
--- NOTE | 2019-04-06 11:34 | BHS Discharge Summary ---
[facility] Discharge Summary Rgqv-ir-Sorf Encounter Date: Apr 06, 2019 Jlwy-yq-Hrvk Encounter Time: 09:00 Reason-Hosp/Final Diag (DSM-V): (1) Alcohol use disorder, severe, dependence Hospital Course & Plan: DATE OF ADMISSION: April 04, 2019 DATE OF INTERVIEW: April 05, 2019 at 9 a.m. ATTENDING PHYSICIAN Basilia Barroso MD CHIEF COMPLAINT "I was trying to detox on my own. I was making arrangements. 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 The patient has a history of drinking and has most recently been drinking three beers per day along with about 12 ounces of hard liquor. A week ago, he came home and found his in their bed. He called EMS and she was brought to the ER but attempts at resuscitation were not successful. Since then he has had a great deal of support from family members and has been planning her . He decided to stop drinking completely cold turkey five days prior to admission. He says that he was starting to feel very ill, very anxious and was having panic attacks. He also says his voices came back, telling him "It's all your fault." He came to the emergency room yesterday and was admitted with alcohol withdrawal. He denies any current suicidal ideation, although he does say yesterday he had some fleeting thoughts of suicide but had no plan and no intention. He has been distraught and upset, of course, since his but has been functioning pretty well with the help of family in terms of making plans for her . He has been eating. He says his sleep has been difficult and he thinks he has only been getting three or four hours of sleep per night lately. He has been wearing his CPAP and he reports that generally when he does not wear his CPAP consistently he does experience the onset of auditory hallucinations. PAST PSYCHIATRIC HISTORY He has had three prior residential admissions for rehab including one at the age of 23 in [place] and another one about 11 years ago at [facility] in [place]. He has several admissions here to [facility] for detox and also for psychotic symptoms. He attends [facility] and was last there with his therapist, Bartolome, approximately six months ago. He formerly attended AA in the past fairly regularly but had fallen off; he attended his first AA meeting in a long time on Friday, when he decided to quit alcohol cold turkey. FAMILY HISTORY His mother had depression, alcoholism in two brothers and in several uncles. There are no completed suicides in the family. PAST MEDICAL/SURGICAL HISTORY * Obstructive sleep apnea. * Hypertension. * Seasonal allergies. * History of DTs with alcohol withdrawal in the past. * He was recently diagnosed with an elevated BNP and he was started on Lasix about two months ago. * He is prediabetic and takes Metformin. * He had hernia surgery one year ago. CURRENT MEDICATIONS * Quetiapine 100 mg at bedtime. * Lasix 40 mg daily. * Potassium chloride 20 mEq daily. * Bystolic 10 mg daily. * Lisinopril 30 mg daily. * Protonix 40 mg daily. * Metformin 500 mg b.i.d. HOSPITAL COURSE Pt was admitted to [facility] and maintained on suicide precautions. He was detoxed using valium via the [facility] protocol. Detox was uncomplicated. He attended group and individual therapy, focusing on bereavement, also on strategies for sob riety. We increased his seroquel to 150 mg q HS for his auditory hallucinations, and this was well tolerated. By morning of discharge he was feeling much better, was free of SI, and was planning to follow up at [facility], and with Huma Knight for medication management. He was also planning to return to meetings. (2) Bereavement (3) Psychotic disorder with hallucinations due to known physiological condition Optional Permanent Comment: obstructive sleep apnea Last Edited By: Basilia Barroso on Apr 06, 2019 11:28 Physical Exam Latest Vital Signs Vital Signs 04/05/19 04/06/19 06:03 07:55 Temp 98.1 Pulse 78 Resp 16 B/P (MAP) 138/94 (109) Pulse Ox 93 O2 Delivery Room Air O2 Flow Rate 2.0 Mental Status Exam General Appearance: Casual, Well Groomed, Good Eye Contact, Cooperative, Polite, Good Interaction Speech: Clear, Spontaneous, Normal Rate, Normal Rhythm, Normal Volume, Normal Tone Mood: Euthymic Affect: Full and Appropriate, Tearful (teared up once when we were talking about the of his .) Thought Process: Organized, Logical, Goal Directed Thought Content: No Suicidal Ideation, No Homicidal Ideation, No Delusions; Auditory Halllucinations (still present td much less intensity/frequency); No Visual Hallucinations, No Thought Broadcasting, No Ideas of Reference, No Obsessions, No Compulsions, No Other Sensorium: Clear Cognition: Alert & Oriented-Person, Alert & Oriented-Place, Alert & Oriented- Time, Flscu-Ieqiiepc-Jfpvlglrx Memory: Immediate, Recent, Remote Intelligence: Average Insight Judgment: Fair Departure Result Diagram: 04/05/1961404/05/19614 Condition: Improved Discharge to: Home Discharge Instructions Home Meds Reported Medications Nicotine (NICOTROL) 10 Mg/Inh Ctr, 10 MG INH Q1-2H 04/06/19 Potassium Chloride (POTASSIUM CHLORIDE) 10 Meq Tablet.er, 10 MEQ PO QDAY TAKE 2 TABS DAILY 04/05/19 Furosemide (FUROSEMIDE) 40 Mg Tablet, 40 MG PO DAILY 04/04/19 Quetiapine Fumarate (SEROQUEL) 25 Mg Tablet, 25 MG PO PRN 10/26/18 Quetiapine Fumarate (SEROQUEL) 100 Mg Tablet, 150 MG PO HS 02/23/18 Nebivolol Hcl (BYSTOLIC) 10 Mg Tab, 10 MG PO QDAY, TAB 02/23/18 Lisinopril (LISINOPRIL) 10 Mg Tablet, 30 MG PO QDAY, TAB 02/22/18 Metformin Hcl (METFORMIN HCL) 500 Mg Tablet, 1 TAB PO BID, TAB 08/18/17 Omeprazole (OMEPRAZOLE) 40 Mg Capsule.dr, 40 MG PO QAM, CAP 10/17/16 Discontinued Reported Medications [Potassium] 20 MEQ No Conflict Check, PO DAILY 04/04/19 Hydrochlorothiazide (HYDROCHLOROTHIAZIDE) 25 Mg Tablet, 1 TAB PO QDAY, TAB 08/18/17 Discontinued Scripts Pseudoephedrine Hcl (SUDAFED 12 HOUR) 120 Mg Tablet.er, 120 MG PO Q12H, #14 TAB 0 Refills Prov:JAGDISH COBB MD 01/12/19 Amoxicillin/Pot Clav 875-125 Mg Tab (AUGMENTIN 875-125 TABLET) 1 Each Tablet, 1 TAB PO Q12H, #20 TAB 0 Refills Prov:JAGDISH COBB MD 01/12/19 Multpiple Antipsychotics Used: No Diet: Regular Activity: As Tolerated Special Instructions: Abstain from alcohol. Take medications as prescribed. Follow up with outpatient provider for medication management. Follow up with outpatient therapy. Join AA. Obtain an AA Sponsor & utilize them. Call Crisis Line or return to the ER should BASILIA BARROSO MD Apr 06, 2019 11:34
== END 2019-04-06 10:45 | disposition home or self-care (01) | DRG 897 ==
LOC: BHS 14:55
PROVIDERS: ADMIT Nurse Practitioner Psychiatric/Mental Health; ATTEND Nurse Practitioner Psychiatric/Mental Health
PROC: 5A09357 Assistance with Respiratory Ventilation, Less than 24 Consecutive Hours, Continuous Positive Airway Pressure (ICD-10-PCS; principal; 2019-04-04)
DX: F10.230 Alcohol dependence with withdrawal, uncomplicated (principal); F06.8 Other specified mental disorders due to known physiological condition; G47.33 Obstructive sleep apnea (adult) (pediatric); I10 Essential (primary) hypertension; R73.03 Prediabetes; F17.210 Nicotine dependence, cigarettes, uncomplicated; Z63.4 Disappearance and death of family member; Z99.81 Dependence on supplemental oxygen; Z79.84 Long term (current) use of oral hypoglycemic drugs; Z91.040 Latex allergy status; Z81.1 Family history of alcohol abuse and dependence; Z81.8 Family history of other mental and behavioral disorders
CPT/HCPCS: 36415; 81001; 82040; 82247; 82274; 82310; 82374; 82435; 82565; 82947; 84075; 84132; 84155; 84295; 84450; 84460; 84520; 85025

== ENCOUNTER 2019-04-25 14:26 | Emergency (ER) | payer SELFPAY ==
[2018-02-23 07:43] VITALS: Wt 129.5 kg
[~2019-04-25 14:26] MED LIST changes: +FURO-47 PO; +NIC10R INH; +POTA-28 PO; +POTASSIUM PO
[2019-04-25 14:32] VITALS: BP 161/109
--- NOTE | 2019-04-25 14:33 | ER Report ---
History and Physical Time Seen By MD: 14:31 HPI/ROS History of mental health disorder. Recently admitted to in early April. His young dies suddenly March 27, 2019. He says he thinks he killed her, b/c he has AIDs and gave it to her. He has never been diagnosed with AIDs. He takes multiple meds, but the only psych med is Seroquel 150mg qhs. He did not take it last night. He has previously been on Thorazine. He was a daily drinker and is an alcoholic, but stopped drinking 7 days ago. He says he has not slept in days, and his auditory hallucinations are getting loud and intrusive. Denies SI/HI. No illegal drugs Remainder of the 14 system rev: Yes Allergies: Coded Allergies: avocado (Verified Allergy, Intermediate, BURNING OF THE THROAT, ITCHING EARS, 04/04/19) latex (Verified Allergy, Unknown, UNKNOWN, 04/04/19) PER HOSPITAL PROTOCOL INITIATE LATEX ALLERGY IF ALLERGIC TO AVOCADOS.Also pt says that he does not have a problem with latex. Uncoded Allergies: cats (Allergy, Mild, 07/01/10) Home Meds Reported Medications Nicotine (NICOTROL) 10 Mg/Inh Ctr, 10 MG INH Q1-2H 04/06/19 Potassium Chloride (POTASSIUM CHLORIDE) 10 Meq Tablet.er, 10 MEQ PO QDAY TAKE 2 TABS DAILY 04/05/19 Furosemide (FUROSEMIDE) 40 Mg Tablet, 40 MG PO DAILY 04/04/19 Quetiapine Fumarate (SEROQUEL) 25 Mg Tablet, 25 MG PO PRN 10/26/18 Quetiapine Fumarate (SEROQUEL) 100 Mg Tablet, 150 MG PO HS 02/23/18 Nebivolol Hcl (BYSTOLIC) 10 Mg Tab, 10 MG PO QDAY, TAB 02/23/18 Lisinopril (LISINOPRIL) 10 Mg Tablet, 40 MG PO QDAY, TAB 02/22/18 Metformin Hcl (METFORMIN HCL) 500 Mg Tablet, 1 TAB PO BID, TAB 08/18/17 Omeprazole (OMEPRAZOLE) 40 Mg Capsule.dr, 40 MG PO QAM, CAP 10/17/16 Reviewed Nurses Notes: Yes Old Medical Records Reviewed: Yes Hx Smoking: Yes Smoking Status: Current: Every Day Smoker Exposure to Second Hand Smoke?: No Hx Substance Use Disorder: Yes (quit 2007) Hx Alcohol Use: Yes Constitutional Vital Sign - Last 24 Hours 04/25/19 14:32 Temp 97.5 Pulse 112 Resp 20 B/P (MAP) 161/109 Pulse Ox 94 O2 Delivery Room Air Physical Exam General Appearance: The patient is alert, has no immediate need for airway protection and no current signs of toxicity. [ ] Eyes: Pupils equal and round no injection. Respiratory: Chest is non tender, lungs are clear to auscultation. Cardiac: regular rate and rhythm Gastrointestinal: Abdomen is soft and non tender, no masses, bowel sounds normal. Neck: Neck is supple and non tender. Extremities have full range of motion and are non tender. Skin: No rashes or lesions. DIFFERENTIAL DIAGNOSIS: After history and physical exam differential diagnosis was considered for depression including functional and major depression, situational depression, medication side effect, drugs and alcohol abuse. Medical Decision Making Data Points Result Diagram: 04/25/19 1550 04/25/19 1550 Laboratory Hematology Test 04/25/19 14:26 04/25/19 15:50 Urine Color Straw Urine Clarity Clear Urine pH 6.0 pH (4.8-9.5) Urine Specific Crawford 1.002 Urine Protein Negative mg/dL (NEGATIVE) Urine Glucose (UA) Negative mg/dL (NEGATIVE) Urine Ketones Trace mg/dL (NEGATIVE) Urine Blood Negative (NEGATIVE) Urine Nitrite Negative (NEGATIVE) Urine Bilirubin Negative (NEGATIVE) Urine Urobilinogen Negative mg/dL (0.2-1.9) Urine Leukocyte Esterase Negative (NEGATIVE) Urine RBC <1 /HPF (0-2/HPF) Urine WBC 1 /HPF (0-5/HPF) Urine Squamous Epithelial Cells None /LPF (</=FEW) Urine Bacteria Negative /HPF (NONE-FEW) Urine Mucus None /HPF (NONE-FEW) Urine Opiates Screen Negative Urine Barbiturates Screen Negative Ur Tricyclic Antidepressants Screen Negative Urine Phencyclidine Screen Negative Urine Amphetamines Screen Negative Urine Benzodiazepines Screen Negative Urine Cocaine Screen Negative Urine Cannabinoids Screen Negative Red Blood Count 5.89 M/uL (4.00-5.60) Mean Corpuscular Volume 94.2 fL (80.0-96.0) Mean Corpuscular Hemoglobin 31.4 pg (26.0-33.0) Mean Corpuscular Hemoglobin Concent 33.4 g/dL (32.0-36.0) Red Cell Distribution Width 16.1 % (11.5-14.5) Mean Platelet Volume 9.0 fL (7.2-11.1) Neutrophils (%) (Auto) 78.7 % (39.4-72.5) Lymphocytes (%) (Auto) 10.5 % (17.6-49.6) Monocytes (%) (Auto) 8.4 % (4.1-12.4) Eosinophils (%) (Auto) 2.0 % (0.4-6.7) Basophils (%) (Auto) 0.4 % (0.3-1.4) Nucleated RBC Relative Count (auto) 0.0 /100WBC Neutrophils # (Auto) 9.1 K/uL (2.0-7.4) Lymphocytes # (Auto) 1.2 K/uL (1.3-3.6) Monocytes # (Auto) 1.0 K/uL (0.3-1.0) Eosinophils # (Auto) 0.2 K/uL (0.0-0.5) Basophils # (Auto) 0.1 K/uL (0.0-0.1) Nucleated RBC Absolute Count (auto) 0.00 K/uL Sodium Level 136 mmol/L (137-145) Potassium Level 3.5 mmol/L (3.5-5.0) Chloride Level 97 mmol/L (98-107) Carbon Dioxide Level 21 mmol/L (22-30) Blood Urea Nitrogen 8 mg/dl (9-21) Creatinine 0.60 mg/dl (0.66-1.25) Glomerular Filtration Rate Calc > 60.0 Random Glucose 109 mg/dl (75-110) Calcium Level 9.7 mg/dl (8.4-10.2) Magnesium Level 1.8 mg/dl (1.7-2.2) Total Bilirubin 1.7 mg/dl (0.2-1.3) Aspartate Amino Transf (AST/SGOT) 90 U/L (0-35) Alanine Aminotransferase (ALT/SGPT) 104 U/L (0-56) Alkaline Phosphatase 102 U/L (0-126) Total Protein 8.6 g/dl (6.3-8.2) Albumin 4.8 g/dl (3.5-5.0) Salicylates Level < 10 mg/L Salicylate Last Dose Date Unk Acetaminophen Level < 10 ug/ml Serum Alcohol < 10 mg/dl Chemistry Test 04/25/19 14:26 04/25/19 15:50 Urine Color Straw Urine Clarity Clear Urine pH 6.0 pH (4.8-9.5) Urine Specific Crawford 1.002 Urine Protein Negative mg/dL (NEGATIVE) Urine Glucose (UA) Negative mg/dL (NEGATIVE) Urine Ketones Trace mg/dL (NEGATIVE) Urine Blood Negative (NEGATIVE) Urine Nitrite Negative (NEGATIVE) Urine Bilirubin Negative (NEGATIVE) Urine Urobilinogen Negative mg/dL (0.2-1.9) Urine Leukocyte Esterase Negative (NEGATIVE) Urine RBC <1 /HPF (0-2/HPF) Urine WBC 1 /HPF (0-5/HPF) Urine Squamous Epithelial Cells None /LPF (</=FEW) Urine Bacteria Negative /HPF (NONE-FEW) Urine Mucus None /HPF (NONE-FEW) Urine Opiates Screen Negative Urine Barbiturates Screen Negative Ur Tricyclic Antidepressants Screen Negative Urine Phencyclidine Screen Negative Urine Amphetamines Screen Negative Urine Benzodiazepines Screen Negative Urine Cocaine Screen Negative Urine Cannabinoids Screen Negative White Blood Count 11.6 k/uL (4.5-11.0) Red Blood Count 5.89 M/uL (4.00-5.60) Hemoglobin 18.5 g/dL (14.0-18.0) Hematocrit 55.5 % (42.0-52.0) Mean Corpuscular Volume 94.2 fL (80.0-96.0) Mean Corpuscular Hemoglobin 31.4 pg (26.0-33.0) Mean Corpuscular Hemoglobin Concent 33.4 g/dL (32.0-36.0) Red Cell Distribution Width 16.1 % (11.5-14.5) Platelet Count 181 K/uL (150-450) Mean Platelet Volume 9.0 fL (7.2-11.1) Neutrophils (%) (Auto) 78.7 % (39.4-72.5) Lymphocytes (%) (Auto) 10.5 % (17.6-49.6) Monocytes (%) (Auto) 8.4 % (4.1-12.4) Eosinophils (%) (Auto) 2.0 % (0.4-6.7) Basophils (%) (Auto) 0.4 % (0.3-1.4) Nucleated RBC Relative Count (auto) 0.0 /100WBC Neutrophils # (Auto) 9.1 K/uL (2.0-7.4) Lymphocytes # (Auto) 1.2 K/uL (1.3-3.6) Monocytes # (Auto) 1.0 K/uL (0.3-1.0) Eosinophils # (Auto) 0.2 K/uL (0.0-0.5) Basophils # (Auto) 0.1 K/uL (0.0-0.1) Nucleated RBC Absolute Count (auto) 0.00 K/uL Glomerular Filtration Rate Calc > 60.0 Calcium Level 9.7 mg/dl (8.4-10.2) Magnesium Level 1.8 mg/dl (1.7-2.2) Total Bilirubin 1.7 mg/dl (0.2-1.3) Aspartate Amino Transf (AST/SGOT) 90 U/L (0-35) Alanine Aminotransferase (ALT/SGPT) 104 U/L (0-56) Alkaline Phosphatase 102 U/L (0-126) Total Protein 8.6 g/dl (6.3-8.2) Albumin 4.8 g/dl (3.5-5.0) Salicylates Level < 10 mg/L Salicylate Last Dose Date Unk Acetaminophen Level < 10 ug/ml Serum Alcohol < 10 mg/dl Toxicology Test 04/25/19 14:26 04/25/19 15:50 Urine Opiates Screen Negative Urine Barbiturates Screen Negative Ur Tricyclic Antidepressants Screen Negative Urine Phencyclidine Screen Negative Urine Amphetamines Screen Negative Urine Benzodiazepines Screen Negative Urine Cocaine Screen Negative Urine Cannabinoids Screen Negative Salicylates Level < 10 mg/L Salicylate Last Dose Date Unk Acetaminophen Level < 10 ug/ml Serum Alcohol < 10 mg/dl Urinalysis Test 04/25/19 14:26 Urine Color Straw Urine Clarity Clear Urine pH 6.0 pH (4.8-9.5) Urine Specific Crawford 1.002 Urine Protein Negative mg/dL (NEGATIVE) Urine Glucose (UA) Negative mg/dL (NEGATIVE) Urine Ketones Trace mg/dL (NEGATIVE) Urine Blood Negative (NEGATIVE) Urine Nitrite Negative (NEGATIVE) Urine Bilirubin Negative (NEGATIVE) Urine Urobilinogen Negative mg/dL (0.2-1.9) Urine Leukocyte Esterase Negative (NEGATIVE) Urine RBC <1 /HPF (0-2/HPF) Urine WBC 1 /HPF (0-5/HPF) Urine Squamous Epithelial Cells None /LPF (</=FEW) Urine Bacteria Negative /HPF (NONE-FEW) Urine Mucus None /HPF (NONE-FEW) ED Course/Re-evaluation ED Course Acute psychosis likely from of and weaning himself off of alcohol. Baseline schizophrenia. No SI/HI. WIll admit for further stabilization. Decision to Disposition Date: Apr 25, 2019 Decision to Disposition Time: 16:51 Depart Departure Latest Vital Signs Vital Signs Date Time Temp Pulse Resp B/P (MAP) Pulse Ox O2 Delivery O2 Flow Rate FiO2 04/25/19 14:32 97.5 112 20 161/109 94 Room Air Impression: Primary Impression: Psychotic disorder with hallucinations due to known physiological condition Condition: Improved Disposition: XFER TO COUNTS INCLUDE 234 BEDS AT THE [facility] Referrals: GREGORY MILLER (PCP) JYOTI HANEY MD Apr 25, 2019 14:33
[2019-04-25 16:15] LABS: PLATELET COUNT, AUTOMATED 181 K/uL (150-450)
[2019-04-25] MEDS ORDERED: PROPARACAINE 0.5% OP 15ML BTL ONE (22:41)
[2019-04-25] MEDS ORDERED: FLUORESCEIN SOD 1 MG 1 EA STRP ONE (22:41)
== END 2019-04-25 17:25 | disposition home or self-care (01) ==
LOC: ER 14:49
DX: F23 Brief psychotic disorder (principal)
CPT/HCPCS: 80305; 80320; 80329; 81001; 82040; 82247; 82310; 82374; 82435; 82565; 82947; 83735; 84075; 84132; 84155; 84295; 84443; 84450; 84460; 84520; 85025; 99284

== ENCOUNTER 2019-04-25 16:58 | Inpatient (IN) | payer OTHER ==
[2018-02-23 07:43] VITALS: Ht 180.3 cm; Wt 117.0 kg
[~2019-04-25] VITALS: Ht 180.3 cm; Wt 117.0 kg
[2019-04-25 17:15] VITALS: BP 138/88
[2019-04-25] MEDS ORDERED: ACETAMINOPHEN 325 MG TAB PO PRN (17:20)
[2019-04-25] MEDS ORDERED: MAG HYD/AL HYD/SIMETH 30ML UDC PO PRN (17:20)
[2019-04-25] MEDS ORDERED: NICOTINE CARTRIDGE 1 EA PO PRN (17:20)
[2019-04-25] MEDS ORDERED: QUEtiapine FUM 25 MG TAB PO ONE (17:40)
[2019-04-25] MEDS ORDERED: QUEtiapine FUM 25 MG TAB PO PRN (18:10)
[2019-04-25] MEDS: NICOTINE INH SYSTEM 10 MG/INH INH PRN (18:30)
[2019-04-25] MEDS ORDERED: LORazepam 1 MG TAB PO ONE (19:15)
[2019-04-25] MEDS ORDERED: QUEtiapine FUM 100 MG TAB PO ONE (19:15)
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
[2019-04-25] MEDS ORDERED: diphenhydrAMINE 25 MG CAP PO ONE (20:35)
[2019-04-25] MEDS ORDERED: OLANZapine ZYDIS ODT 5MG TABDP PO ONE (20:35)
[2019-04-25] MEDS: metFORMIN HCL 500 MG TAB PO SCH (20:44)
[2019-04-25] MEDS: QUEtiapine FUM 100 MG TAB PO SCH (21:00)
[2019-04-25] MEDS: TOBRAMYCIN/DEX OP SUSP 2.5 ML OS SCH (22:55)
[2019-04-25] MEDS ORDERED: PROPARACAINE 0.5% OP 15ML BTL OS PRN (22:55)
--- NOTE | 2019-04-25 23:13 | Miscellaneous Provider Note ---
Miscellaneous Provider Note Note Asked to see patient with swollen, red left eye. The patient is psychotic and unable to give a reliable history but does state he thinks he got "plastic" in it. Consulted with Dr. Desai in ER who agreed to exam patient's eye with fluorescein dye and Wood's lamp which he has available in ER. Exam of the L eye shows swelling of the eyelids with redness. The sclera and conjunctiva are both swollen and injected. Fluorescein stating shows a haziness over the center of the cornea without obvious foreign body. Will start Tobradex ophth gtts to be used for 3 days. Will need recheck in the next day or so as well. The hospitalist service will recheck the patient. JOSÉ LUIS MARK MD Apr 25, 2019 23:13
[2019-04-25 23:40] VITALS: BP 98/70
[2019-04-26 08:30] VITALS: BP 130/71
[2019-04-26] MEDS: MULTIVITAMINS TAB PO SCH (09:09)
[2019-04-26] MEDS: NEBIVOLOL HCL 5 MG TAB PO SCH (09:09)
[2019-04-26] MEDS: PANTOPRAZOLE SOD 40 MG TABEC PO SCH (09:09)
[2019-04-26] MEDS: POTASSIUM CHL 10 MEQ TABCR PO SCH (09:09)
[2019-04-26] MEDS: FUROSEMIDE 40 MG TAB PO SCH (09:09)
[2019-04-26] MEDS: metFORMIN HCL 500 MG TAB PO SCH ×2 (09:09→20:33)
[2019-04-26] MEDS: LISINOPRIL 20 MG TAB PO SCH (09:09)
[2019-04-26] MEDS: TOBRAMYCIN/DEX OP SUSP 2.5 ML OS SCH ×2 (09:12→20:32)
--- NOTE | 2019-04-26 11:55 | Miscellaneous Provider Note ---
Miscellaneous Provider Note Note Hospitalist consulted for left eye. Upon exam, it appears he had contact placed in eye. When he was asked about it, he reports he has "glass contact" that requires plunger to remove. But, he reports he does not have a plunger to remove contact. It sounds as if he has been wearing for many days without removing. I found patient a plunger, he will remove his contact. Continue eye drops as prescribed. Recommend he keep contact out until drainage and eye irritation improved. Hospitalist will continue to follow. GARRY [employer]S ENGINEER Apr 26, 2019 11:54
--- NOTE | 2019-04-26 14:26 | SCHAAF H&P ---
DATE OF ADMISSION: April 25, 2019 ATTENDING PHYSICIAN Tre Nino MD The patient was seen at approximately 1100 hours on the a.m. of April 26, 2019 for note concerning this dictation. PRESENTING PROBLEM, CHIEF COMPLAINT Return of auditory hallucinations. Acute bereavement ongoing. HISTORY OF PRESENT ILLNESS This is a very well-known 48-year-old male who was notably just on the Behavioral Health Unit here at [facility] from April 04, 2019 to April 06, 2019 under similar circumstances. The patient is known to have a history of severe obstructive sleep apnea which he has been somewhat reluctant to treat. The patient also having binging alcohol behaviors in the past as well. The patient also normally taking fairly low dose antipsychotics as well at night. The patient significantly has recently suffered the loss of his who unexpectedly. For the rest of history and physical please see Behavior Health history and dated April 04, 2019. MENTAL HEALTH HISTORY Please see Behavior Health history and dated April 04, 2019. FAMILY PSYCHIATRIC HISTORY Please see Behavior Health history and dated April 04, 2019. PAST MEDICAL HISTORY Please see Behavior Health history and dated April 04, 2019. SOCIAL HISTORY Please see Behavior Health history and dated April 04, 2019. LEGAL HISTORY Please see Behavior Health history and dated April 04, 2019. SUBSTANCE ABUSE HISTORY Please see Behavior Health history and dated April 04, 2019. PHYSICAL EXAMINATION Please see emergency room note. Notable for a 48-year-old male exhibiting psychotic symptoms in the emergency room requiring chemical restraint. Vital signs at the time of admission: Temperature 97.5, pulse 112, respiratory rate 20, blood pressure 161/109 and pulse oximetry 94% on room air. LABORATORY DATA At the time of admission toxicology screen notably negative. Nondetectable serum alcohol as well. Urinalysis was unremarkable as well and notably negative for urine protein in this patient with chronic hypertension. Chemistry panel notable for chloride low at 97 and carbon dioxide low at 21. Total bilirubin elevated at 1.7 with an AST and ALT elevated at 90 and 104 respectively. TSH 0.53 normal range. CBC notable for a mildly elevated WBC of 11.6, likely representing a stress reaction. MENTAL STATUS EXAMINATION GENERAL APPEARANCE, BEHAVIOR AND ATTITUDE: This is fairly well groomed 48-year-old male appears slightly older than stated age, making good eye contact with this provider and interacting well at time of initial interview. Just prior to interview, the patient was known to be unclothed but cooperative. The patient referring to his lack of clothing prior to interview as due to voices telling him to remove his clothing. The patient again making good eye contact, nontearful, no grossly bizarre mannerisms or ticks. SPEECH: Largely within normal limits. Regular rate, rhythm, volume and tone. MOOD: Unable to fully describe. AFFECT: Constricted and thought to be mood-congruent. THOUGHT PROCESSES: No gross loose associations or flight of ideas were detected. THOUGHT CONTENT: The patient reporting ongoing auditory hallucinations. No obvious ideas of reference, thought broadcastings, delusions, obsessions or compulsions. No suicidal or homicidal ideations upon this admission. SENSORIUM: Appeared clear. COGNITION: Alert and oriented to person, place, time and partially to situation. MEMORY: Immediate, recent and remote historically intact. INTELLIGENCE: Average, based on previous knowledge of this patient. INSIGHT AND JUDGMENT: Considered somewhat impaired currently due to a culmination of stressors combine with not being compliant with CPAP machine. ASSESSMENT This is a fairly well-known 48-year-old male who is suffering acute bereavement on top of absence of CPAP machine and binge drinking at times. The patient's was known to be in a relationship with this patient to where she was in some ways a retail experience specialist for this patient. In her absence, it is thought patient will have much difficulty taking care of task of daily living. Will continue to evaluate, look into the status of any friends or family that could live with the patient upon discharge from the hospital. Notably, patient was on the Behavioral Health Unit under similar circumstances approximately 3 weeks ago and apparently has not been compliant with outpatient follow up since then. DIAGNOSES PER DSM-V 1. 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 2. Untreated obstructive sleep apnea. 3. Ongoing bereavement. PLAN 1. Will admit to the unit. 2. Necessary precautions will be implemented. 3. The patient will participate in individual and group therapy. 4. Medications will be titrated accordingly. 5. Collateral information to be obtained as necessary. 6. Will get CPAP machine and the patient agrees to use it. 7. Estimated length of stay unknown at this time. [facility]
[2019-04-26] MEDS: QUEtiapine FUM 100 MG TAB PO SCH (20:33)
[2019-04-26 20:58] VITALS: BP 104/56
[2019-04-27] MEDS ORDERED: LORazepam 1 MG TAB PO ONE (02:20)
[2019-04-27] MEDS ORDERED: QUEtiapine FUM 25 MG TAB PO PRN (02:25)
--- NOTE | 2019-04-27 02:35 | NUR ---
Pt has removed his Bipap mask a number of times but put it back on when prompted. At approx. 0142, pt took off his mask again and went to the bathroom. After coming out of the bathroom, the pt disrobed and before lying down on the floor next to his bed. Staff checked on him and he replied "yes" when asked if he was alright. He was then observed crawling on all fours and moving the recliner so that he could stand up behind it and with his face in the corner for approx. [address] Nino was notified of this bizarre behavior and gave orders for some PRN medications. The pt declined to take these and continues to be active in his room, still naked, with periods of sitting on the side of his bed at times.
[2019-04-27] MEDS: TOBRAMYCIN/DEX OP SUSP 2.5 ML OS SCH ×2 (08:17→20:42)
[2019-04-27] MEDS: NEBIVOLOL HCL 5 MG TAB PO SCH (08:17)
[2019-04-27] MEDS: LISINOPRIL 20 MG TAB PO SCH (08:18)
[2019-04-27] MEDS: metFORMIN HCL 500 MG TAB PO SCH ×2 (08:18→20:32)
[2019-04-27] MEDS: PANTOPRAZOLE SOD 40 MG TABEC PO SCH (08:18)
[2019-04-27] MEDS: FUROSEMIDE 40 MG TAB PO SCH (08:18)
[2019-04-27] MEDS: POTASSIUM CHL 10 MEQ TABCR PO SCH (08:18)
[2019-04-27] MEDS: MULTIVITAMINS TAB PO SCH (08:18)
--- NOTE | 2019-04-27 10:39 | Miscellaneous Provider Note ---
Miscellaneous Provider Note Note Eye much improved today. Patient denies any further concerns for his eye. He reports improvement with removing the contact overnight. He will continue eye drops until tomorrow morning (last dose 04/28 at 0900), then will discontinue. Please call hospitalist with any further concerns. GARRY BLAS CUSTOM BOOKBINDER Apr 27, 2019 10:39
[2019-04-27 11:01] VITALS: BP_SYST 113; BP_SYST 115; BP_DIAS 67; BP_DIAS 68
--- NOTE | 2019-04-27 11:15 | BHS Progress Note ---
[facility] - Subjective Progress Notes Subjective Patient noted to be nude last night for part of the night, and partially compliant with C-pap machine. Will increase Seroquel tonight, psychosis resolving. Patient denies any other concerns today. Suicidal Ideation: Resolving Homicidal Ideation: None [facility] - Objective Physical Exam Vital Signs Vital Signs Date Time Temp Pulse Resp B/P (MAP) Pulse Ox O2 Delivery O2 Flow Rate FiO2 04/26/19 20:58 98.4 82 104/56 (72) 93 Room Air 04/25/19 23:40 15 3.0 Muscle Strength and Tone: WNL Gait and Station: Steady [facility] Medications Reviewed: Side Effects, Benefits of Medication, Risks Allergies Reviewed: Yes Mental Status Exam General Appearance: Casual, Well Groomed, Good Eye Contact, Cooperative, Polite, Good Interaction; No Tearful, No Psychomotor Agitation, No Psychomotor Retardation, No Bizarre Mannerisms, No Tics Speech: Clear, Spontaneous, Normal Rate, Normal Rhythm, Normal Volume, Normal Tone; No Delayed, No Slurred, No Garbled Mood: Dysthmic/Depressed (improving) Affect: Full and Appropriate, Calm; No Neutral, No Flat, No Tearful, No Anxious, No Agitated Thought Process: Organized, Logical, Goal Directed; No Loose Associations, No Flight of Ideas Thought Content: Suicidal Ideation (resolving); No Homicidal Ideation, No Delusions, No Auditory Halllucinations (almost fully resolved), No Visual Hallucinations, No Thought Broadcasting, No Ideas of Reference, No Obsessions; Compulsions Sensorium: Clear Cognition: Alert & Oriented-Person, Alert & Oriented-Place, Alert & Oriented- Time, Iggrx-Savfgxtu-Hmslnnkqo Memory: Immediate, Recent, Remote Intelligence: Average Insight Judgment: Fair (improving with adequate sleep.) [facility] Assessment and Plan Qgwj-lj-Mgzu Encounter Date: Apr 27, 2019 Eoht-wx-Llmg Encounter Time: 10:30 [facility] Plan: Necessary Precautions, Individual/Group Therapy, Admin/Titrate Meds, Educate Patient Tobacco Medications: Started Multpiple Antipsychotics Used: No Problems: (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 increase seroquel. 2. look into living status IKE RODNEY MD Apr 27, 2019 11:15
[2019-04-27 16:39] VITALS: BP 103/63
[2019-04-27] MEDS ORDERED: QUEtiapine FUM 100 MG TAB PO SCH (21:00)
[2019-04-27] MEDS ORDERED: diphenhydrAMINE 50 MG/ML VIAL ONE (23:11)
[2019-04-27] MEDS ORDERED: OLANZapine 10 MG VIAL IM ONLY ONE (23:11)
[2019-04-27] MEDS ORDERED: LORazepam 2 MG/ML VIAL ONE (23:11)
[2019-04-27] MEDS ORDERED: LORazepam 2 MG/ML VIAL IM ONE (23:15)
[2019-04-27] MEDS ORDERED: diphenhydrAMINE 50 MG/ML VIAL IM ONE (23:15)
[2019-04-27] MEDS ORDERED: OLANZapine 10 MG VIAL IM ONLY PRN (23:15)
[2019-04-27] MEDS ORDERED: WATER STERILE 10 ML VIAL IM ONLY PRN (23:15)
[2019-04-28 00:30] VITALS: BP 92/60
--- NOTE | 2019-04-28 00:30 | NUR ---
At approx. 2245 hrs. during NOC change of shift, pt approached the doors to the adolescent area and knocked to get staffs attention. When the psychologist personnel opened the door and asked him what he needed, the pt stated that he needed to go to the ER because there was someone he knew down there. The pt was advised that there was no one by that name in the ER and it was suggested that he go lie down and get some rest. Once staff returned to the report room and resumed report, the pt began getting a running start and ramming into the doors to the adolescent area with his shoulder. He would not respond when staff attempted to verbally engage him at this time except to insist he needed to go see someone in the ER and continue to batter the doors and pace. The pt was offered PRN medications several times and stated I dont want any medication. each time. A code yellow was initiated and [employer] was contacted to request assistance as the pt was visibly increasing in agitation. Dr Nino was notified and an IM injection consisting of Zyprexa 10mg, Ativan 2mg and Benadryl 50mg was ordered. During this time, Sgt. Lane and Ofc. Rod with [employer] arrived on the unit to lend assistance as well as two techs from the ER, the Nursing Wire Stretcher and two security guards. The pt did disappear from sight in his room several times and could be heard punching hickman/windows and smashing the radio that he had in his room. Once the IM medication was prepared, the pt was sitting in a chair at the table in the adolescent area and an attempt was made to have a single person approach him in order to administer the injections so as not to further upset him. The pt would not acknowledge anything said to him and began rocking, presumably to work up momentum and then charged the open door and [employer] officers. At this point [employer] and all other staff intervened and physically restrained the pt on his back by his arms and legs on the floor while the injections were administered in the pts right thigh. The pt was restrained for approx. 10 minutes while it was ensured that the pt was in no respiratory distress and he was not injured in any way. Staff also did a sweep of the pts room and removed the remains of the destroyed radio and any other objects that the pt could use for potential harm. Once this was done and the pt appeared to be calming a little, he was assisted into a sitting position on the floor and given a drink of water upon his request. The pt was then assisted to a standing position and escorted back into his room. The pt did again begin to resist when an attempt was made to lower him onto the bed but then sat down on the bed by himself when released. Staff then safely withdrew from the room to allow the pt to continue to calm down on his own. The code yellow was cleared. All staff and [employer] denied injury and all non-S staff dispersed to return to their respective duty stations. After approx. 15 minutes, staff entered the pts room where he was resting with his eyes closed with regular respirations and appeared to be in no distress. Oxygen via nasal cannula was placed on the pt and titrated to maintain oxygen saturation at 93%. Frequent monitoring will be implemented for the remainder of the night. Persons Present: Ela Busby RN/ Marcelina Trimble, RN/ Rut Reddy, [employer]/ Jordan Torres, [employer]/ Kaila Klein, [employer]/ Shawna Rocha, MST/ Gaurav Gibson, MST/ John Awad, Security/ Caleb Desai, Security/ Sgt. Domo Lane, LAITH/ Patti. LAITH Rod
[2019-04-28] MEDS ORDERED: diphenhydrAMINE 50 MG/ML VIAL IM PRN (01:10)
[2019-04-28] MEDS ORDERED: LORazepam 2 MG/ML VIAL IM PRN (01:10)
--- NOTE | 2019-04-28 03:42 | NUR ---
Pt got out of bed and turned his light on and then came out into the adolescent area hallway and began trying to push open doors. He then went back into his room for a few minutes and opened and close his door repeatedly. He then came out again and began trying all of the doors. I approached the doors to the adolescent area and asked the pt what he needed because he seemed confused. The pt stated "toiletries". I advised the pt that it was the middle of the night and we needed him to get some rest. The pt did not respond but went back into his room and turned the light off.
[2019-04-28] MEDS: NEBIVOLOL HCL 5 MG TAB PO SCH (09:12)
[2019-04-28] MEDS: TOBRAMYCIN/DEX OP SUSP 2.5 ML OS SCH (09:12)
[2019-04-28] MEDS: POTASSIUM CHL 10 MEQ TABCR PO SCH (09:13)
[2019-04-28] MEDS: MULTIVITAMINS TAB PO SCH (09:13)
[2019-04-28] MEDS: metFORMIN HCL 500 MG TAB PO SCH ×2 (09:13→19:49)
[2019-04-28] MEDS: PANTOPRAZOLE SOD 40 MG TABEC PO SCH (09:13)
[2019-04-28] MEDS: LISINOPRIL 20 MG TAB PO SCH (09:13)
[2019-04-28] MEDS: FUROSEMIDE 40 MG TAB PO SCH (09:13)
--- NOTE | 2019-04-28 10:47 | BHS Progress Note ---
[facility] - Subjective Progress Notes Subjective Patient notably did very well yesterday in groups and was interacting well with staff and other patient's, until last evening when patient started to charge the door, and destroy material. This resulted in chemical restraint, and police being summoned to the unit. This Am patient was cooperative again with this provider who detained him this AM. Patient is under much recent distress particularity involving the untimely passing of his which took place during the night, and therefore could be temporally relevant to timing of behavioral outbursts. Will have EKG done and switch to Thorazine. Suicidal Ideation: None Homicidal Ideation: None [facility] - Objective Physical Exam Vital Signs Vital Signs Date Time Temp Pulse Resp B/P (MAP) Pulse Ox O2 Delivery O2 Flow Rate FiO2 04/28/19 04:00 84 16 93 Nasal Cannula 4.0 04/28/19 00:30 92/60 (71) 04/27/19 16:39 98.6 Muscle Strength and Tone: WNL Gait and Station: Steady [facility] Medications Reviewed: Side Effects, Benefits of Medication, Risks Allergies Reviewed: Yes Mental Status Exam General Appearance: Casual, Well Groomed, Good Eye Contact, Cooperative, Polite, Good Interaction; No Tearful, No Psychomotor Agitation, No Psychomotor Retardation, No Bizarre Mannerisms, No Tics Speech: Clear, Spontaneous, Normal Rate, Normal Rhythm, Normal Volume, Normal Tone; No Delayed, No Slurred, No Garbled Mood: Dysthmic/Depressed (agitated) Affect: Full and Appropriate, Calm; No Neutral, No Flat, No Tearful, No Anxious; Agitated (mild) Thought Process: Organized, Logical, Goal Directed; No Loose Associations, No Flight of Ideas Thought Content: No Suicidal Ideation, No Homicidal Ideation, No Delusions, No Auditory Halllucinations (appear present in evening. ), No Visual Hallucinations, No Thought Broadcasting, No Ideas of Reference, No Obsessions; Compulsions Sensorium: Clear Cognition: Alert & Oriented-Person, Alert & Oriented-Place, Alert & Oriented- Time, Rwysr-Ygodadgf-Ikxxpozws Memory: Immediate, Recent, Remote Intelligence: Average Insight Judgment: Fair (improving with adequate sleep.) [facility] Assessment and Plan Rzim-ht-Ftvm Encounter Date: Apr 28, 2019 Efji-ta-Hnvr Encounter Time: 11:00 [facility] Plan: Necessary Precautions, Individual/Group Therapy, Admin/Titrate Meds, Educate Patient Tobacco Medications: Started Multpiple Antipsychotics Used: No Problems: (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 switch to Thorazine. 2. follow emergency detainment. IKE RODNEY MD Apr 28, 2019 10:47
--- NOTE | 2019-04-28 11:59 | EKG ---
FACILITY: [facility] PATIENT NAME: LORA RODRIGEZ : [id number] MR: [id number] V: [id number] EXAM DATE: ORDERING PHYSICIAN: IKE RODNEY TECHNOLOGIST: REYNA Test Reason : ANTIPSYCHOTIC Blood Pressure : / mmHG Vent. Rate : 085 BPM Atrial Rate : 085 BPM P-R Int : 188 ms QRS Dur : 090 ms QT Int : 348 ms P-R-T Axes : 041 078 033 degrees QTc Int : 414 ms Normal sinus rhythm Normal ECG When compared with ECG of 12-JAN-2019 07:58, Nonspecific T wave abnormality has replaced inverted T waves in Inferior leads T wave inversion no longer evident in Anterior leads Confirmed by YARED DIAZ ([id number]) on 04/29/2019 6:04:36 AM Referred By: RASHAUN Confirmed By:YARED DIAZ
--- NOTE | 2019-04-28 17:09 | BHS - Psychiatric Evaluation ---
ER - Title 25 MHE Evaluation Title 25 Evaluation Patient Detained By: Physician (Dr. Tre Nino) Referral Source: Professional: Dr. Tre Nino Date Patient Detained: Apr 28, 2019 Time Patient Detained: 07:35 Date Intermediate Expires: May 03, 2019 Time Intermediate Expires: 07:35 Legal Status: Police Hold: No Legal Status: Residence: [facility] Resident, State Resident Assessment Data Provided By: Patient, Other Provider, Other Source HPI/ROS: This is a very well-known 48-year-old male who [facility] and stayed until April 06, 2019. The patient is known to have a history of severe obstructive sleep apnea which he has been somewhat reluctant to treat. The patient also having binging alcohol behaviors in the past as well. The patient also normally taking fairly low dose antipsychotics as well at night. The patient significantly has recently suffered the loss of his who unexpectedly. He returned to [facility] on 04/25/2019, also voluntarily. Late in the evening on 04/27/2019, patient became very agressive and began punching hickman and windows in his room. Law Enforcement were necessary to intervene and patient required cheminal restraint in a Code Yellow. When he wanted to leave in a still psychotic and decompensated state he was detained by Dr. Tre Adhikari to ensure his safety. Admit due to SI or Attempt: Yes Suicide Plan: Has Plan w/out Access Alcohol or Drugs Involved: No Is Patient Info Reliable: Yes Is Collateral Info Reliable: Yes Current Home Psych Meds: Zyprexa, Thorazine, Ativan Mental Status Exam General Appearance: Good Eye Contact, Cooperative Speech: Clear, Normal Rhythm Mood: Dysthmic/Depressed Affect: Sad Thought Process: Goal Directed Thought Content: Suicidal Ideation (Denies) Sensorium: Clear Cognition: Alert & Oriented-Person, Alert & Oriented-Place Memory: Immediate Insight Judgment: Poor Sleep: Normal Hallucinations: Denies Delusions: Denies Current Risk & History Current Dangerous Risk Assessm: Current Suicide Ideation (Denies), Agitation this Encounter (Began punching hickman and doors last night) Past Dangerous Risk Assessm: Suicide Ideation-last 6mo (Patient was suicidal and binge drinking earlier this month) Prior Alcohol/Drug Abuse Patient has a history of abusing alcohol. Previous Suicide Attempt: Past - High Lethality Previous Psychiatric Illness: Yes Previous Psychiatric Treatment: Yes (Patient was suicidal and binge drinking earlier this month, was hospitalized at [facility]) Risk Assessment & Disposition Evaluated Risk Assessment: Risk is high. Patient's agitation related to psychosis last evening required Law Enforcement and chemical restraint to stabilize. As such, patient was unsafe. Impression: Primary Impression: Depression Additional Impression: Psychotic disorder with hallucinations due to known physiological condition Meets Mental Illness Req.: Yes Meets Dangerousness Req.: Yes Emergency Intermediate to be: Upheld Decision Comment: Patient's agitation related to psychosis last evening required Law Enforcement and chemical restraint to stabilize. As such, patient was unsafe. Date of Decision: Apr 28, 2019 Time of Decision: 17:05 Patient is Medically Stable at: Yes Disposition: [facility] Problem Qualifiers BECKY WOODALL LPC Apr 28, 2019 17:09
--- NOTE | 2019-04-28 17:30 | BHS - Psychiatric Evaluation ---
Title 25 Evaluation Hearing Report: 109 Date of Report: Apr 28, 2019 Examiner: Deedee White M.S., L.P.CDavid Patient Detained By: Physician (Dr. Tre Nino) 24hr Mental Health Eval By: Deedee White M.S., LDavidPDavidC. Date Patient Detained: Apr 28, 2019 Time Patient Detained: 07:35 Date Correction Expires: May 03, 2019 Time Correction Expires: 07:35 Legal Status: Police Hold: No Legal Status: Relationship: Legal Status: Residence: [facility] Resident, State Resident Referral Source: Professional: Dr. Tre Nino Assessment Data Provided By: Patient, Other Provider, Other Source Chief Complaint: Patient was agitated and altered and as such was unsafe. Law Enforcement were necessary to help patient be safe. As well chemical restraint was necessary to help patient be safe. Patient wanted to leave [facility] shortly after this event, and he has not yet become stable. HPI/ROS: This is a very well-known 48-year-old male who [facility] and stayed until April 06, 2019. The patient is known to have a history of severe obstructive sleep apnea which he has been somewhat reluctant to treat. The patient also having binging alcohol behaviors in the past as well. The patient also normally taking fairly low dose antipsychotics as well at night. The patient significantly has recently suffered the loss of his who unexpectedly. He returned to [facility] on 04/25/2019, also voluntarily. Late in the evening on 04/27/2019, patient became very agressive and began punching hickman and windows in his room. Law Enforcement were necessary to intervene and patient required cheminal restraint in a Code Yellow. When he wanted to leave in a still psychotic and decompensated state he was detained by Dr. Tre Nino to ensure his safety. 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 Alcohol use disorder, severe. Alcohol withdrawal. Bereavement. Risk Formulation: The patient's risk is severe. Patient is decompensated, especially he is psychotic, and assaultive. His alcohol use disorder further dysregulates his stability and he is 1 month post sudden loss of his who unexpectedly. He came to [facility] earlier in the month for a similar presentation, and did not seek outpatient follow up after discharge. He is, by his own report, having great difficulty managing on his own and caring for himself. Since his 's he has continued to binge drink, intensifying some underlying psychosis, and not sought outpatient therapy. Reliability of Pt-Evidenced By Patient is reliable in his report that he has not been managing well outside of the hospital. Within the hospital he has not been reliable, and has been psychotic. Current Dangerous Risk Assess: Current Suicide Ideation (Denies), Self- Injurious Behaviors (Patient is binge drinking and not taking medication to treat his underlying psychotic disorder.) Current Risk Summary: The patient's risk is severe. Patient is decompensated, especially he is psychotic, and assaultive. His alcohol use disorder further dysregulates his stability and he is 1 month post sudden loss of his who unexpectedly. He came to [facility] earlier in the month for a similar presentation, and did not seek outpatient follow up after discharge. He is, by his own report, having great difficulty managing on his own and caring for himself. Since his 's he has continued to binge drink, intensifying some underlying psychosis, and not sought outpatient therapy. Past Dangerous Risk Assess: Suicide Ideation-last 6mo (Patient was suicidal and binge drinking earlier this month) [facility] - Exam Physical Exam Vital Signs Vital Signs 04/27/19 04/28/19 04/28/19 16:39 00:30 04:00 Temp 98.6 Pulse 84 Resp 16 B/P (MAP) 92/60 (71) Pulse Ox 93 O2 Delivery Nasal Cannula O2 Flow Rate 4.0 Mental Status Exam General Appearance: Good Eye Contact, Cooperative Speech: Clear, Normal Rhythm Mood: Dysthmic/Depressed Affect: Sad Thought Process: Goal Directed Thought Content: Suicidal Ideation (Denies) Sensorium: Clear Cognition: Alert & Oriented-Person, Alert & Oriented-Place Memory: Immediate Intelligence: Average Insight Judgment: Poor Sleep: Normal Care & Behavior on Unit Treatment Team Participation: Patient notably did very well yesterday in groups and was interacting well with staff and other patient's, until last evening when patient started to charge the door, and destroy material. This resulted in chemical restraint, and police being summoned to the unit. This Am patient was cooperative again with this provider who detained him this AM. Patient is under much recent distress particularity involving the untimely passing of his which took place during the night, and therefore could be temporally relevant to timing of behavioral outbursts. Pt. Taking Meds Voluntarily: Yes Code Yellow: Patient required a 109 response last evening when he was punching hickman and charging doors. Title 25 History Psychiatric History: Per Dr. Nino, "He has had three prior residential admissions for rehab including one at the age of 23 in [place] and another one about 11 years ago at [facility] in [place]. He has several admissions here to [facility] for detox and also for psychotic symptoms. He attends [facility] and was last there with his therapist, Bartolome, approximately six months ago. He formerly attended AA in the past fairly regularly but had fallen off; he attended his first AA meeting in a long time on Friday, when he decided to quit alcohol cold turkey." Family Psychiatric Hx: Patient reports that his mother had depression. He also says there is alcoholism in two brothers and in several uncles. There are no completed suicides in the family. Social History: Per Dr. Nino, "Patient was born and raised in [place]. His parents were at the time of his . He got along well with family members and he describes a good childhood which was free of emotional, physical or sexual abuse. He has a very supportive family. He lives in [place] and was to his for about three years. As above, she unexpectedly a week ago and he is awaiting the results of her autopsy to find out her case of . He has three brothers and two sisters. He is a high school graduate. He has been three times in total. He has two children and a stepson, who are supportive. " Previous Detentions: Patient reports to this interviewer that he was detained in 2009 for mental illness. He says a hearing was held. Prior Hospitalizations: Patient record is notable for 4 other [facility] hospitalizations, commencing in 2009. Historic Psychiatric Dx: Patient has a history of mood and thought disorders dating back to 2009 within his EMR at [facility]. Drug & Alcohol Use: Patient reports trying other drugs. Most recently, patient has been drinking 12 ounces of hard liquor plus three beers per day. Current Living Situation: Patient is living alone in his home. His 's recent unexpected contri butes to a psychologically changed environment within this home. Current Support System: Patient has support from extended family. Financial Issues: Patient has significant financial stressors. Legal Concerns: Patient reports a DUI in his history. Patient Strengths: Patient has a history of being very hardworking at his job. Relevant Medical History: Obstructive sleep apnea. Hypertension. Seasonal allergies. History of DTs with alcohol withdrawal in the past. He was recently diagnosed with an elevated BNP and he was started on Lasix about two months ago. He is prediabetic and takes Metformin. He had hernia surgery one year ago. DEEDEE WOODALL LINK CUTTER Apr 28, 2019 17:13
[2019-04-28 18:22] VITALS: BP 126/77
[2019-04-28] MEDS: chlorproMAZINE 25 MG TAB PO SCH (19:49)
--- NOTE | 2019-04-29 00:41 | NUR ---
Went back to check on the pt and observed him standing at the window and staring out (window is sanded opaque).
[2019-04-29] MEDS: NEBIVOLOL HCL 5 MG TAB PO SCH (08:01)
[2019-04-29] MEDS: FUROSEMIDE 40 MG TAB PO SCH (08:01)
[2019-04-29] MEDS: metFORMIN HCL 500 MG TAB PO SCH ×2 (08:01→19:44)
[2019-04-29] MEDS: POTASSIUM CHL 10 MEQ TABCR PO SCH (08:01)
[2019-04-29] MEDS: PANTOPRAZOLE SOD 40 MG TABEC PO SCH (08:02)
[2019-04-29] MEDS: LISINOPRIL 20 MG TAB PO SCH (08:02)
[2019-04-29] MEDS: MULTIVITAMINS TAB PO SCH (08:02)
[2019-04-29] MEDS: chlorproMAZINE 25 MG TAB PO PRN ×3 (08:03→23:04)
--- NOTE | 2019-04-29 09:39 | BHS Progress Note ---
[facility] - Subjective Progress Notes Subjective Patient again last PM refusing treatment, and likely "cheeking" Thorazine, as evidenced by no sleep. patient posturing and barricading furniture. Will start depakote today, and encourage medication compliance. Appetite good. Paranoid behaviors continue. Code yellow in process. Suicidal Ideation: None Homicidal Ideation: None S - Objective Physical Exam Vital Signs Vital Signs Date Time Temp Pulse Resp B/P (MAP) Pulse Ox O2 Delivery O2 Flow Rate FiO2 04/28/19 18:22 97.4 84 126/77 (93) 93 Room Air 04/28/19 04:00 16 4.0 Muscle Strength and Tone: WNL Gait and Station: Steady [facility] Medications Reviewed: Side Effects, Benefits of Medication, Risks Allergies Reviewed: Yes Mental Status Exam General Appearance: Casual, Good Eye Contact (at times); No Cooperative (mildly uncooperative); Psychomotor Agitation (at times) Speech: Clear, Normal Rhythm Mood: Dysthmic/Depressed (angry, bereavement) Affect: Sad, Agitated (at times) Thought Process: Goal Directed (at times); No Loose Associations, No Flight of Ideas Thought Content: Suicidal Ideation (Denies); No Homicidal Ideation; Auditory Halllucinations (likely), Ideas of Reference (likely) Sensorium: Clear Cognition: Alert & Oriented-Person, Alert & Oriented-Place, Alert & Oriented- Time; No Acxzi-Mnyuhmgr-Uosriysjk Memory: Immediate, Recent, Remote Intelligence: Average Insight Judgment: Poor (extremely limited currently) [facility] Assessment and Plan Ewcw-ih-Tqxc Encounter Date: Apr 29, 2019 Wrdv-gv-Npkg Encounter Time: 10:00 [facility] Plan: Necessary Precautions, Individual/Group Therapy, Admin/Titrate Meds, Educate Patient Tobacco Medications: Started Multpiple Antipsychotics Used: No Problems: (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 encourage compliance with medications. IKE RODNEY MD Apr 29, 2019 09:39
[2019-04-29] MEDS: DIVALPROEX SOD DR 500 MG TAB PO SCH (10:15)
[2019-04-29 15:10] VITALS: BP 122/63
--- NOTE | 2019-04-29 15:55 | EKG ---
FACILITY: [facility] PATIENT NAME: LORA RODRIGEZ : [id number] MR: [id number] V: [id number] EXAM DATE: ORDERING PHYSICIAN: IKE RODNEY TECHNOLOGIST: Test Reason : ANTI PSYCH MEDS Blood Pressure : / mmHG Vent. Rate : 085 BPM Atrial Rate : 085 BPM P-R Int : 186 ms QRS Dur : 096 ms QT Int : 374 ms P-R-T Axes : 056 070 023 degrees QTc Int : 445 ms Sinus rhythm Possible left atrial enlargement Similar to previous EKGs Confirmed by GWEN MARK ([id number] on 04/29/2019 8:10:43 PM Referred By: RASHAUN Confirmed By:GWEN MARK
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
[2019-04-29] MEDS: NICOTINE INH SYSTEM 10 MG/INH INH PRN (19:19)
[2019-04-29] MEDS: chlorproMAZINE 25 MG TAB PO SCH (19:44)
[2019-04-29] MEDS ORDERED: LORazepam 1 MG TAB PO ONE (22:05)
[2019-04-29] MEDS ORDERED: LORazepam 1 MG TAB ONE (22:15)
[2019-04-30] MEDS: DIVALPROEX SOD DR 500 MG TAB PO SCH ×3 (07:53→20:18)
[2019-04-30] MEDS: metFORMIN HCL 500 MG TAB PO SCH ×2 (07:53→20:18)
[2019-04-30] MEDS: NEBIVOLOL HCL 5 MG TAB PO SCH (07:53)
[2019-04-30] MEDS: chlorproMAZINE 25 MG TAB PO SCH ×2 (07:54→20:18)
[2019-04-30] MEDS: MULTIVITAMINS TAB PO SCH (07:54)
[2019-04-30] MEDS: FUROSEMIDE 40 MG TAB PO SCH (07:54)
[2019-04-30] MEDS: PANTOPRAZOLE SOD 40 MG TABEC PO SCH (07:54)
[2019-04-30] MEDS: LISINOPRIL 20 MG TAB PO SCH (07:54)
[2019-04-30] MEDS: POTASSIUM CHL 10 MEQ TABCR PO SCH (07:54)
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
--- NOTE | 2019-04-30 13:59 | NUR ---
BASED ON THE COMMENTS I HEARD WHICH WERE DOCUMENTED ON 04/25/19 AT 6, A REPORT WAS MADE TO THE DEPARTMENT OF FAMILY SERVICES WHO WILL CHECK ON THE WELFARE OF HIS 15 YEAR OLD STEP-DAUGHTER. THIS DECISION WAS MADE UPON CONSULTATION WITH THE HOSPITAL [employer]S TECHNICIAN AND THE COMPLIANCE OFFICE AT [facility].
[2019-04-30] MEDS ORDERED: chlorproMAZINE 25 MG TAB PO SCH (21:00)
[2019-05-01 06:16] VITALS: BP 131/73
[2019-05-01] MEDS: LISINOPRIL 20 MG TAB PO SCH (08:13)
[2019-05-01] MEDS: metFORMIN HCL 500 MG TAB PO SCH ×2 (08:13→21:31)
[2019-05-01] MEDS: NEBIVOLOL HCL 5 MG TAB PO SCH (08:13)
[2019-05-01] MEDS: FUROSEMIDE 40 MG TAB PO SCH (08:13)
[2019-05-01] MEDS: chlorproMAZINE 25 MG TAB PO SCH ×2 (08:13→21:32)
[2019-05-01] MEDS: PANTOPRAZOLE SOD 40 MG TABEC PO SCH (08:13)
[2019-05-01] MEDS: POTASSIUM CHL 10 MEQ TABCR PO SCH (08:14)
[2019-05-01] MEDS: MULTIVITAMINS TAB PO SCH (08:14)
[2019-05-01] MEDS: DIVALPROEX SOD DR 500 MG TAB PO SCH ×3 (08:14→21:31)
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
[2019-05-01 12:52] VITALS: BP 118/62
[2019-05-01] MEDS ORDERED: LOPERAMIDE HCL 2 MG CAP PO ONE (20:00)
[2019-05-01] MEDS ORDERED: LOPERAMIDE HCL 2 MG CAP PO PRN (20:00)
[2019-05-02] MEDS: chlorproMAZINE 25 MG TAB PO PRN ×2 (01:22→22:42)
[2019-05-02] MEDS ORDERED: chlorproMAZINE 25 MG TAB PO ONE ×2 (02:00→23:45)
[2019-05-02 06:22] VITALS: BP 111/70
[2019-05-02] MEDS: POTASSIUM CHL 10 MEQ TABCR PO SCH (08:41)
[2019-05-02] MEDS: PANTOPRAZOLE SOD 40 MG TABEC PO SCH (08:41)
[2019-05-02] MEDS: chlorproMAZINE 25 MG TAB PO SCH ×2 (08:41→21:26)
[2019-05-02] MEDS: metFORMIN HCL 500 MG TAB PO SCH ×2 (08:41→21:25)
[2019-05-02] MEDS: FUROSEMIDE 40 MG TAB PO SCH (08:42)
[2019-05-02] MEDS: LISINOPRIL 20 MG TAB PO SCH (08:42)
[2019-05-02] MEDS: MULTIVITAMINS TAB PO SCH (08:42)
[2019-05-02] MEDS: DIVALPROEX SOD DR 500 MG TAB PO SCH ×3 (08:42→21:25)
[2019-05-02] MEDS: NEBIVOLOL HCL 5 MG TAB PO SCH (08:42)
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
[2019-05-02 14:58] VITALS: BP 116/68
[2019-05-03] VITALS: BP 127/90
[2019-05-03 06:21] LABS: PLATELET COUNT, AUTOMATED 194 K/uL (150-450)
[2019-05-03 07:55] VITALS: BP 130/83
[2019-05-03] MEDS: MULTIVITAMINS TAB PO SCH (08:12)
[2019-05-03] MEDS: POTASSIUM CHL 10 MEQ TABCR PO SCH (08:12)
[2019-05-03] MEDS: DIVALPROEX SOD DR 500 MG TAB PO SCH ×3 (08:12→21:08)
[2019-05-03] MEDS: FUROSEMIDE 40 MG TAB PO SCH (08:12)
[2019-05-03] MEDS: metFORMIN HCL 500 MG TAB PO SCH ×2 (08:13→21:08)
[2019-05-03] MEDS: PANTOPRAZOLE SOD 40 MG TABEC PO SCH (08:13)
[2019-05-03] MEDS: NEBIVOLOL HCL 5 MG TAB PO SCH (08:13)
[2019-05-03] MEDS: LISINOPRIL 20 MG TAB PO SCH (08:13)
[2019-05-03] MEDS: chlorproMAZINE 25 MG TAB PO SCH (08:13)
--- NOTE | 2019-05-03 09:18 | BHS Progress Note ---
[facility] - Subjective Progress Notes Subjective Patient continues to do well throughout the weekend, and noted to be interacting well on the unit during treatment team meeting. Patient denies any concerns today, very minimal auditory hallucinations now. No suicidal or homicidal ideation. Will continue current medications. Will ask the court for a suspende d commitment, to include: 1. no alcohol consumption, 2. take medications as prescribed. 3. Follow up with outpatient appointments, and [facility] program if available. 4. wear c-pap machine. Court hearing potentially tomorrow. Suicidal Ideation: None Homicidal Ideation: None [facility] - Objective Physical Exam Vital Signs Vital Signs Date Time Temp Pulse Resp B/P (MAP) Pulse Ox O2 Delivery O2 Flow Rate FiO2 05/03/19 07:55 98.1 92 130/83 (99) 94 Room Air 05/03/19 00:00 18 Muscle Strength and Tone: WNL Gait and Station: Steady [facility] Medications Reviewed: Side Effects, Benefits of Medication, Risks Allergies Reviewed: Yes Mental Status Exam General Appearance: Casual, Good Eye Contact (much improved. ); No Cooperative; Good Interaction; No Tearful, No Psychomotor Agitation, No Psychomotor Retardation Speech: Clear, Spontaneous, Normal Rate, Normal Rhythm, Normal Volume, Normal Tone; No Garbled, No Rambling, No Inappropriate Mood: No Dysthmic/Depressed; Euthymic; No Hyperthymic, No Other Affect: Full and Appropriate, Calm; No Sad, No Flat, No Tearful, No Anxious, No Agitated Thought Process: Organized, Logical, Goal Directed; No Loose Associations, No Flight of Ideas Thought Content: No Suicidal Ideation (Denies), No Homicidal Ideation, No Delusions; Auditory Halllucinations (minimal ); No Visual Hallucinations, No Thought Broadcasting, No Ideas of Reference, No Obsessions, No Compulsions Sensorium: Clear Cognition: Alert & Oriented-Person, Alert & Oriented-Place, Alert & Oriented-Time, Jyier-Htashyff-Iwgepwcri Memory: Immediate, Recent, Remote Intelligence: Average Insight Judgment: Fair (improving ) Result Diagram: 05/03/1960705/03/19607 [facility] Assessment and Plan Qtub-jo-Hwve Encounter Date: May 03, 2019 Boal-ib-Qwag Encounter Time: 08:40 [facility] Plan: Necessary Precautions, Individual/Group Therapy, Admin/Titrate Meds, Educate Patient Tobacco Medications: Started Multpiple Antipsychotics Used: No Problems: (1) Psychotic disorder with hallucinations due to known physiological condition Optional Permanent Comment: obstructive sleep apnea Last Edited By: Lupis Barroso on Apr 06, 2019 11:28 Status: Chronic (2) Bereavement Status: Acute Condition 1. will await hearing. 2. monitor depakote level. 3. lipid panel will be drawn. IKE RODNEY MD May 03, 2019 09:18
[2019-05-03] MEDS: NICOTINE INH SYSTEM 10 MG/INH INH PRN (19:05)
[2019-05-03] MEDS ORDERED: chlorproMAZINE 25 MG TAB PO SCH (21:00)
[2019-05-03 21:44] VITALS: BP 122/73
[2019-05-03] MEDS ORDERED: LORazepam 1 MG TAB PO ONE (22:40)
[2019-05-04 06:00] VITALS: BP 134/76
[2019-05-04] MEDS: metFORMIN HCL 500 MG TAB PO SCH (08:13)
[2019-05-04] MEDS: DIVALPROEX SOD DR 500 MG TAB PO SCH ×2 (08:13→13:30)
[2019-05-04] MEDS: POTASSIUM CHL 10 MEQ TABCR PO SCH (08:13)
[2019-05-04] MEDS: FUROSEMIDE 40 MG TAB PO SCH (08:13)
[2019-05-04] MEDS: NEBIVOLOL HCL 5 MG TAB PO SCH (08:13)
[2019-05-04] MEDS: MULTIVITAMINS TAB PO SCH (08:14)
[2019-05-04] MEDS: PANTOPRAZOLE SOD 40 MG TABEC PO SCH (08:14)
[2019-05-04] MEDS: LISINOPRIL 20 MG TAB PO SCH (08:14)
[2019-05-04 10:04] VITALS: BP 136/78
--- NOTE | 2019-05-04 12:40 | BHS Progress Note ---
[facility] - Subjective Progress Notes Subjective Patient now stable with full resolution of recent chaotic behavior on the unit. Patient has history of not following up appropriately as an outpatient and resuming alcohol consumption. Patient notably has lost his spouse which was known to help him stay sober and make appointments. Patient reports no other pr oblems today. Patient would benefit from suspended commitment. Suicidal Ideation: None Homicidal Ideation: None [facility] - Objective Physical Exam Vital Signs Vital Signs Date Time Temp Pulse Resp B/P (MAP) Pulse Ox O2 Delivery O2 Flow Rate FiO2 05/04/19 10:04 98.0 91 136/78 (97) 93 Room Air 05/03/19 00:00 18 Muscle Strength and Tone: WNL Gait and Station: Steady [facility] Medications Reviewed: Side Effects, Benefits of Medication, Risks Allergies Reviewed: Yes Mental Status Exam General Appearance: Casual, Well Groomed, Good Eye Contact, Cooperative, Po lite, Good Interaction; No Tearful, No Psychomotor Agitation, No Psychomotor Retardation Speech: Clear, Spontaneous, Normal Rate, Normal Rhythm, Normal Volume, Normal Tone; No Garbled, No Rambling, No Inappropriate Mood: No Dysthmic/Depressed; Euthymic; No Hyperthymic, No Other Affect: Full and Appropriate, Calm; No Sad, No Flat, No Tearful, No Anxious, No Agitated Thought Process: Organized, Logical, Goal Directed; No Loose Associations, No Flight of Ideas Thought Content: No Suicidal Ideation, No Homicidal Ideation, No Delusions, No Auditory Halllucinations, No Visual Hallucinations, No Thought Broadcasting, No Ideas of Reference, No Obsessions, No Compulsions Sensorium: Clear Cognition: Alert & Oriented-Person, Alert & Oriented-Place, Alert & Oriented- Time, Bssnv-Ngnetcrj-Rjptbsmdp Memory: Immediate, Recent, Remote Intelligence: Average Insight Judgment: Fair (in absence of alcohol. 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 hearing today. 2. appropriate care in place as outpatient. IKE RODNEY MD May 04, 2019 12:40
[2019-05-04] MEDS ORDERED: Potassium PO (15:13)
[2019-05-04] MEDS ORDERED: DIVA-1 PO (15:17)
[2019-05-04] MEDS ORDERED: Thorazine PO (15:21)
[2019-05-04] MEDS ORDERED: MULT-1379 PO (16:59)
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
== END 2019-05-04 18:23 | disposition home or self-care (01) | DRG 884 ==
LOC: BHS 16:58
PROVIDERS: ADMIT Registered Nurse Psychiatric/Mental Health, Adult; ATTEND Registered Nurse Psychiatric/Mental Health, Adult
PROC: 5A09357 Assistance with Respiratory Ventilation, Less than 24 Consecutive Hours, Continuous Positive Airway Pressure (ICD-10-PCS; principal; 2019-04-25)
DX: F06.0 Psychotic disorder with hallucinations due to known physiological condition (principal); F10.20 Alcohol dependence, uncomplicated; G47.33 Obstructive sleep apnea (adult) (pediatric); R45.6 Violent behavior; I10 Essential (primary) hypertension; R73.03 Prediabetes; Y90.0 Blood alcohol level of less than 20 mg/100 ml; Z63.4 Disappearance and death of family member; Z91.19 Patient's noncompliance with other medical treatment and regimen; Z79.84 Long term (current) use of oral hypoglycemic drugs
CPT/HCPCS: 36415; 80164; 82040; 82247; 82310; 82374; 82435; 82465; 82565; 82947; 83718; 84075; 84132; 84155; 84295; 84450; 84460; 84478; 84520; 85025; 93005; J1200; J2060; J3230; J3490; Q0161; Q0163

== ENCOUNTER → 2019-06-08 | Outpatient (CLI) | payer BC, OTHER ==
[2018-02-23 07:43] VITALS: BMI 38.9
[~2019-06-08] MED LIST changes: +DIVA-1 PO; +MULT-1379 PO; +Potassium PO; +Thorazine PO
[2019-06-08 16:38] LABS: LDL CHOLESTEROL 139 mg/dl
[2019-06-08 16:49] LABS: PLATELET COUNT, AUTOMATED 219 K/uL (150-450)
== END ==
LOC: LAB 16:01
PROVIDERS: ATTEND Nurse Practitioner Family
DX: Z00.00 Encounter for general adult medical examination without abnormal findings (principal); I10 Essential (primary) hypertension; E11.9 Type 2 diabetes mellitus without complications; E78.5 Hyperlipidemia, unspecified; Z79.899 Other long term (current) drug therapy
CPT/HCPCS: 36415; 80164; 82040; 82247; 82310; 82374; 82435; 82465; 82565; 82947; 83036; 83718; 84075; 84132; 84155; 84295; 84443; 84450; 84460; 84478; 84520; 85025

== ENCOUNTER → 2019-06-22 | Outpatient (CLI) | payer BC ==
[2018-02-23 07:43] VITALS: BMI 38.9
== END ==
LOC: LAB 16:23
PROVIDERS: ATTEND Nurse Practitioner Family
DX: R94.6 Abnormal results of thyroid function studies (principal); I13.2 Hypertensive heart and chronic kidney disease with heart failure and with stage 5 chronic kidney disease, or end stage renal disease
CPT/HCPCS: 36415; 84439; 84443; 84481; 86376